=== PATIENT | male | born 1945 | race Two or more races ===

== ENCOUNTER → 2016-08-20 | Outpatient (CLI) | payer MEDICARE, OTHER ==
[~2016-08-20] MED LIST: ALLO300T2 PO; BUME1TAB18 PO; CARVED PO; KETO75CA PO; LOSARTAN PO; METOLAZONE PO; OMEPRAZOL PO; POTASSIUM PO; WARF2TAB PO
--- NOTE | 2016-08-20 16:14 | RADRPT ---
PROCEDURE: XR bilateral knees. CLINICAL INDICATION: Knee pain TECHNIQUE: AP weightbearing, lateral weightbearing and sunrise views of each knee are available fo r review. COMPARISON: None available FINDINGS: Right knee: There is severe osteoarthrosis involving the right medial tibial femoral compartment and patellofemo ral compartment and moderate osteoarthrosis of the lateral tibial femoral compartment .This is assoc iated with joint space narrowing, subchondral sclerosis, varus deformity and osteophytosis. Left knee: There is severe osteoarthrosis involving the left medial tibial femoral compartment and patellofemor al compartment and moderate osteoarthrosis of the lateral tibial femoral compartment. This is associ ated with joint space narrowing, subchondral sclerosis, lateral displacement of the tibia, varus def ormity and osteophytosis. There is otherwise normal mineralization, architecture and alignment. No fractures are identified. No osseous lesions are identified. The soft tissues are unremarkable. IMPRESSION: Severe osteoarthrosis involving the right medial tibial femoral compartment and patellofemoral marianela rtment and moderate osteoarthrosis of the lateral tibial femoral compartment Severe osteoarthrosis involving the left medial tibial femoral compartment and patellofemoral compar tment and moderate osteoarthrosis of the lateral tibial femoral compartment. RPTAT: HGDB .Vasyl Enriquez MD, MD Date Time Electronically viewed and signed by .Vasyl Enriquez MD, on 08/20/2016 16:14 .B/
--- NOTE | 2016-08-21 07:27 | HKNOTE ---
DATE OF SERVICE: 08/20/2016 REFERRING PHYSICIAN: Kevin Romero MD, [address], [address], [place] [address]. MAIN COMPLAINT: Pain in both knees. HISTORY OF MAIN COMPLAINT: The patient is a 71-year-old male who complains of pain in both knees wh ich has been present for many years. He saw an orthopedic surgeon in 2006, who scheduled him for a knee replacement. Unfortunately, the anesthesiologist was unable to intubate him, had to cancel the surgery, and he has been afraid to go back and have another attempt at going through with the surge ry. Meanwhile, his condition has deteriorated a great deal. PRESENT COMPLAINTS: Pain is present in both knees pretty much with every step that he takes. The p atient has been afraid to visit another orthopedic surgeon who might recommend knee replacement surg facundo because of his previous bad experience. He has had numerous conservative treatments. He has had at least 10 cortisone injections into each knee and 2 "gel" injections into each knee. He feels that he no longer gets any benefit from these injections. The pain has been in both knees, worse on the right side. He takes 4 Percocet per day for the pain. His pain is aggravated by walking and weightbearing. He does have pain at rest. Pain also wakes him up at night. He takes Percocet 10/325. He has also tried zolpidem as well as [place] 5/325. The patient was walking on 2 canes (he has requested a prescription for a walker from me today). On a level surface, he cannot walk more than a few steps using his double canes. He has to use the canes at all times. He limps all the time. He does not have a shoe lift. He can not clip his toenails or tie his shoelaces. PAST ORTHOPEDIC HISTORY: PREVIOUS ORTHOPEDIC OPERATIONS: None. PRIOR CORTISONE INTAKE: As above. ALCOHOL INTAKE: None. OTHER JOINT PROBLEMS: None listed. BLOOD TESTS FOR ARTHRITIS: None. PRIOR INJURIES TO HIPS OR KNEES: Yes. PAST MEDICAL HISTORY: 1. Diabetes, currently on metformin 500 mg b.i.d. 2. Hepatitis B. 3. Gout. 4. 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 5. Sleep apnea. Has been using CPAP machine for 4 years. 6. GERD. On omeprazole. 7. Morbid obesity (height 5 feet 2 inches, weight 225 pounds). 8. Benign prostatic hypertrophy. The patient has frequency. His urine dribbles. 9. Gout (currently on allopurinol 300 mg a day). 10. Glaucoma. PAST SURGICAL HISTORY: 1. Sinus surgery, 2003. 2. Cataract surgery, 2005. 3. Mitral valve replacement, 2010. 4. Pacemaker installation, 2010. DRUG ALLERGIES: LASIX. MEDICATIONS: 1. Lactulose. 2. Bumetanide. 3. Warfarin. 4. Omeprazole. 5. Tamsulosin. 6. Klor-Con. 7. Allopurinol 300 mg daily. 8. Metformin hydrochloride 500 mg twice a day. 9. Oxycodone 10/325 four per day. 10. Zolpidem 5 mg once a day. 11. Aller-Nikky for allergies. 12. Lumigan. 13. Pazeo. 14. Magnesium 400 mg daily. 15. Iron 65 mg daily. FAMILY HISTORY: Father at 63 of heart problems. Mother at 75 of cancer. SYSTEMS REVIEW: Difficulty with urination. Numbness "in both legs under the knees." Currently on Coumadin. Ankles swell. HABITS: The patient smoked from the age of 17 to 39 years. Alcohol intake moderate. PROFESSIONAL NURSING ASSISTANT: Veronika Varma MD, [address] [address] [place] [address]. Phone number [phone]. HEEL BUILDER: Kevin Romero MD, [address], [address], [place] [address]. PHYSICAL EXAMINATION: GENERAL: The patient is a markedly overweight 71-year-old male. He comes in with his . Lori vu one of the 2 speak Indonesian. Fortunately, our x-ray oven technician is and could do a perfect translation throughout the visit. VITAL SIGNS: Height 5 feet 4 inches. Weight 230 pounds. Blood pressure 125/70, temperature 97.6. GAIT: The patient has 2 canes. We gave him a walker to try, and he gets around much better on it. He can barely get onto the examination couch because he is so markedly incapacitated from his arthr itic knees. HIPS: Both hips have a full range of motion without pain. RIGHT KNEE: Varus deformity. Extension lacks 10 degrees. Flexion is to 105 degrees. Severe pain on attempting to exceed this range of motion. There is 6+ crepitus in the knee ____ the patella. LEFT KNEE: Varus deformity. Extension lacks 20 degrees. Flexion is to 105 degrees. There is 6+ c repitus in the knee ____ the patella. IMAGING: Plain x-rays of the right knee obtained today at the [facility] show ex ceedingly severe degenerative osteoarthritis most severely affecting the lateral compartment with va holden deformity. [id number] contact laterally with subchondral sclerosis, osteophyte formation and intraosseous cyst formation. Patellofemoral joint shows similar changes. Imaging of the left knee ____. DIAGNOSES: 1. Exceedingly severe degenerative osteoarthritis of both knees, more symptomatic on the right side . 2. Diabetes type 2. 3. Organic heart disease. 4. Mitral valve replacement with mechanical valve. 5. Currently on Coumadin, which he has been on since his mitral valve surgery. 6. Sleep apnea. 7. Gastroesophageal reflux disease. 8. Morbid obesity. 9. Benign prostatic hypertrophy. 10. Controlled gout. 11. Glaucoma. MANAGEMENT: Using a fluent Pakistani-speaking battery charger, patient and his were advised that his options are to live with his pain for the rest of his life or to consider knee replacement surgery. The operation of total knee replacement discussed with him and his in a fair amount of detail i ncluding some of the major possible complications. The patient was given my manual titled "Arthritis of the Knee Joint" which contains information conc erning the various alternatives of treatment. It includes various forms of conservative treatment, i ncluding the use of nonsteroidal anti-inflammatory medications and their dangers. Various surgical a lternatives are discussed. The technique of total knee replacement is discussed in detail, including possible complications. Included also is a section on the possible complications of blood transfusi on, a section on postoperative precautions, and an exercise program to follow at home after total kn ee replacement. The long-term care of a total knee replacement implant is also covered in detail. Th e patient was instructed to read this manual in its entirety since it is, in and of itself, a form o f informed consent. After reading this manual, the patient will make a list of further questions parminder t may not have been covered adequately. The patient was further advised that this manual, although e xhaustive in nature, is only intended to supplement and complement a one-on-one discussion with me. The patient indicates that he has someone who can translate for him on the book. He understands parminder t the book is slightly outdated. The patient will need to see Dr. Kevin Romero and Dr. Varma for clearance before he can consider proceeding with surgery. Note that he was shown videos of patients who have had knee replacement surgery, but most emphatical ly he was advised that he could not expect to make recovery at the same rate as the patients I showe d him since he is markedly overweight and has had severe arthritis in both knees for at least 10 yea rs (neglected arthritis). Certainly when he has his first knee replacement surgery on the right chelita e, he is going to have to still deal with the left side until we can eventually perform a left knee replacement. FINAL DIAGNOSES: 1. Exceedingly severe degenerative osteoarthritis of both knees, more symptomatic on the right side . 2. Diabetes type 2. 3. Organic heart disease. 4. Mitral valve replacement with mechanical valve. 5. Currently on Coumadin, which he has been on since his mitral valve surgery. 6. Sleep apnea. 7. Gastroesophageal reflux disease. 8. Morbid obesity. 9. Benign prostatic hypertrophy. 10. Controlled gout. 11. Glaucoma. Before he schedules his surgery, the patient will see Dr. Romero and Dr. Varma for their blessings before we schedule his surgery. Dictated By: ARIANA AC MD HH/NTS Conf#: [id number] DID#: [id number] CC: KEVIN ROMERO MD; VERONIKA VARMA MD;*[facility]*
== END | disposition home or self-care (01) ==
LOC: HKI 09:38
DX: M25.561 Pain in right knee (principal); M25.562 Pain in left knee; M17.0 Bilateral primary osteoarthritis of knee; E11.9 Type 2 diabetes mellitus without complications; E66.09 Other obesity due to excess calories; K21.9 Gastro-esophageal reflux disease without esophagitis; N40.0 Benign prostatic hyperplasia without lower urinary tract symptoms; Z95.2 Presence of prosthetic heart valve
CPT/HCPCS: 73562; G0463

== ENCOUNTER 2016-09-09 07:30 | Inpatient (IN) | payer MEDICARE, OTHER ==
[~2016-09-09] VITALS: Ht 162.6 cm; Wt 102.7 kg
[2016-10-22] VITALS (30 sets, daily range): BP systolic 109–148; BP diastolic 34–87; PULSE 62–82; RESP 12–30; Ht 162.6 cm; Wt 102.7 kg
[2016-10-22] MEDS ORDERED: DEXAMETHASONE 4 MG/ML 1 ML INJ IV ONE (05:30)
[2016-10-22] MEDS ORDERED: VANCOMYCIN 1 GM (PMX) 250 ML IVPB ONE (05:30)
[2016-10-22] MEDS ORDERED: ONDANSETRON 4 MG INJ IV ONE (05:30)
[2016-10-22] MEDS ORDERED: oxyCODONE (CR) 10 MG TAB [oxyCONTIN] PO ONE (05:30)
[2016-10-22] MEDS ORDERED: CELECOXIB 200 MG CAP PO ONE (05:30)
[2016-10-22] MEDS ORDERED: ACETAMINOPHEN 1000MG/100ML IV 100 ML IVPB ONE (05:30)
[2016-10-22] MEDS ORDERED: LACTATED RINGER'S 1,000 ML IV* SCH (05:30)
[2016-10-22] MEDS ORDERED: LANSOPRAZOLE 30 MG CAP PO ONE (05:30)
[2016-10-22] MEDS: KNEE PAIN COCKTAIL VANCO INJ SCH ×12 (05:30→09:10)
[2016-10-22] MEDS ORDERED: CARV3.12 PO (05:46)
[2016-10-22] MEDS ORDERED: METF500T3 PO (05:46)
[2016-10-22] MEDS ORDERED: TAMS0.4C2 PO (05:46)
[2016-10-22] MEDS ORDERED: OMEP20CA16 PO (05:46)
[2016-10-22] MEDS ORDERED: ZOLP5TAB7 PO (05:51)
[2016-10-22] MEDS ORDERED: BIMA2.5D BOTH EYES (05:51)
[2016-10-22] MEDS ORDERED: [UNRECOGNIZED DRUG - CODE] PO (05:51)
[2016-10-22] MEDS ORDERED: MAGN400T38 PO ×2 (05:51→07:44)
[2016-10-22] MEDS ORDERED: POTA10TA97 PO (05:51)
[2016-10-22] MEDS ORDERED: FERR325C PO ×2 (05:51→07:44)
[2016-10-22] MEDS ORDERED: TRANEXAMIC ACID 2,000 MG in SOD CHLORIDE 0.9% 100 ML IVPB ONE (06:00)
[2016-10-22] MEDS ORDERED: NEOSTIGMINE 3 MG/3 ML SYRINGE ONE (06:24)
[2016-10-22] MEDS ORDERED: PROPOFOL 20 ML ONE (06:24)
[2016-10-22] MEDS ORDERED: LIDOCAINE 2% (SDV) 5 ML INJ ONE (06:24)
[2016-10-22] MEDS ORDERED: FENTAnyl 50 MCG/ML VIAL ONE (06:24)
[2016-10-22] MEDS ORDERED: ROCURONIUM 50 MG INJ ONE (06:24)
[2016-10-22] MEDS ORDERED: GLYCOPYRROLATE 0.4 MG INJ ONE (06:24)
[2016-10-22] MEDS ORDERED: ONDANSETRON 4 MG INJ ONE (06:25)
[2016-10-22] MEDS ORDERED: MIDAZOLAM 1 MG/ML 2 ML INJ ONE ×2 (06:25→08:32)
[2016-10-22] MEDS ORDERED: DEXAMETHASONE 4 MG/ML 1 ML INJ ONE (06:25)
[2016-10-22] MEDS ORDERED: SUGAMMADEX SODIUM 200 MG/2 ML VIAL IV ONE (06:25)
[2016-10-22] MEDS ORDERED: LIDOCAINE 2%/EPI 30 ML INJ ONE (06:26)
[2016-10-22] MEDS ORDERED: OXYCODONE/ACETAMINOPHEN (5/325) TAB PO PRN ×2 (06:30)
[2016-10-22] MEDS ORDERED: morphine (1 MG/ML) 10ML SYRINGE IV PRN ×3 (06:30)
[2016-10-22] MEDS ORDERED: HYDROmorphONE (0.2 MG/ML) 10ML SYG IV PRN ×2 (06:30)
[2016-10-22] MEDS ORDERED: SOD CHLORIDE 0.9% 50 ML, TRANEXAMIC ACID 2,000 MG IRR SCH ×2 (06:30)
[2016-10-22] MEDS ORDERED: MIDAZOLAM 1 MG/ML 2 ML INJ IV PRN (06:30)
[2016-10-22] MEDS ORDERED: ONDANSETRON 4 MG INJ IV PRN (06:30)
[2016-10-22] MEDS ORDERED: LABETALOL HCL 20MG INJ IV PRN (06:30)
[2016-10-22] MEDS ORDERED: hydrALAzine 20 MG INJ IV PRN (06:30)
[2016-10-22] MEDS ORDERED: FENTAnyl 50 MCG/ML VIAL IV PRN ×2 (06:30)
[2016-10-22] MEDS ORDERED: DIPHENHYDRAMINE 50 MG INJ IV PRN (06:30)
[2016-10-22] MEDS ORDERED: MEPERIDINE 25 MG INJ IV PRN (06:30)
[2016-10-22] MEDS ORDERED: ATROPINE 1 MG/10 ML SYRINGE IV PRN (06:30)
[2016-10-22] MEDS ORDERED: EPHEDrine SULFATE 50 MG/5 ML SYG IV PRN (06:30)
[2016-10-22 06:35] LABS: INR 1.05; PROTIME 13.7 Sec (12.2-14.2); PT RATIO 1.1
[2016-10-22 06:36] LABS: PARTIAL THROMBOPLASTIN TIME 31.9 Sec (25.0-35.0)
--- NOTE | 2016-10-22 06:46 | HPN ---
Date/Time of Note Date/Time of Note DATE: 10/22/16 TIME: 06:46 Interval H&P Admission Note Pt. seen H&P reviewed: No system changes GUERO SMITH PA-C Oct 22, 2016 06:46
[2016-10-22] MEDS ORDERED: LIDOCAINE 4% SOLUTION 50 ML BTL TOP ONE (07:00)
[2016-10-22] MEDS ORDERED: VANCOMYCIN 1 GM INJ ONE (07:04)
[2016-10-22] MEDS ORDERED: METHYLENE BLUE 1% 10 ML INJ ONE (07:04)
[2016-10-22] MEDS ORDERED: TOBRAMYCIN 1.2 GM POWDER ONE (07:04)
[2016-10-22] MEDS ORDERED: ROPIVACAINE 0.2% 100 ML ONE (07:04)
[2016-10-22] MEDS ORDERED: POLYMYXIN B 500000 UNIT INJ ONE (07:04)
[2016-10-22] MEDS ORDERED: LIDOCAINE 4% (MPF) 5 ML INJ ONE (07:17)
[2016-10-22] MEDS ORDERED: BUPIVACAINE 0.25%/EPI (SDV) 30 ML INJ INJ SCH (07:30)
[2016-10-22] MEDS ORDERED: OLOP2.5D5 OP (07:44)
[2016-10-22] MEDS ORDERED: ROPIVACAINE 0.2% 100ML BAG INJ ONE (09:10)
[2016-10-22] MEDS ORDERED: BACITRACIN 50000 UNITS INJ IRR ONE (09:10)
[2016-10-22] MEDS ORDERED: DEXTROSE 5%-LR 1,000 ML IV SCH (13:28)
[2016-10-22] MEDS ORDERED: WARFARIN 5 MG TAB PO ONE (13:30)
[2016-10-22] MEDS ORDERED: SENNA/DOCUSATE NA (8.6MG/50MG) TAB PO PRN (13:30)
[2016-10-22] MEDS ORDERED: DOCUSATE SODIUM 100 MG CAP PO ONE (13:30)
[2016-10-22] MEDS ORDERED: NALOXONE (0.4 MG/ML) INJ IV PRN (13:30)
[2016-10-22] MEDS ORDERED: NA PHOSPHATE/BIPHOS 133 ML ENEMA PR PRN (13:30)
[2016-10-22] MEDS ORDERED: MEPERIDINE 10 MG/ML 30 ML PCA IV PRN (13:30)
[2016-10-22] MEDS ORDERED: HYDROmorphONE 0.2 MG/ML PCA IV PRN (13:30)
[2016-10-22] MEDS ORDERED: BETHANECHOL 25 MG TAB PO PRN (13:30)
[2016-10-22] MEDS ORDERED: oxyCODONE 5 MG TAB PO PRN (13:30)
[2016-10-22] MEDS ORDERED: DIPHENHYDRAMINE 50 MG INJ IM PRN (13:30)
[2016-10-22] MEDS ORDERED: COUMADIN NOTE XX SCH (13:30)
[2016-10-22] MEDS ORDERED: TRANEXAMIC ACID 1,030 MG in SOD CHLORIDE 0.9% 100 ML IVPB ONE ×5 (13:30→16:15)
[2016-10-22] MEDS ORDERED: BISACODYL 10 MG SUPP PR PRN (13:30)
[2016-10-22] MEDS ORDERED: MAGNESIUM HYDROXIDE 30ML CUP PO PRN (13:30)
[2016-10-22] MEDS ORDERED: ZOLPIDEM 5 MG TAB PO PRN (13:30)
--- NOTE | 2016-10-22 13:31 | OPR ---
Date/Time of Note Date/Time of Note DATE: 10/22/16 TIME: 13:25 Operative Report Preoperative Diagnosis Severe arthritis of the left knee Postoperative Diagnosis Same Operation/Procedure Performed Left total knee replaced with lateral patella release Surgeon: ARIANA AC MD Co-Surgeon: GUERO SMITH PA-C Anesthesia Type: epidural Estimated Blood Loss: 200 - 250 ml's Transfusion Required: no Specimens Bone and culture from the skin Grafts/Implants: none Complications: no ARIANA AC MD Oct 22, 2016 13:31
--- NOTE | 2016-10-22 13:37 | PDOCDIS ---
Discharge Instructions DIAGNOSIS Discharge Diagnosis Status post left total knee arthroplasty CONDITION Patient Condition: Stable HOME CARE INSTRUCTIONS: Diet Instructions: Regular ACTIVITY: Activity Restrictions: Slowly Increase Activity Rest between Activity Avoid heavy lifting No Sexual Activity Do not Drive Do not operate Machinery Do not operate Power Tool Avoid Heavy Housework Keep Limb Elevated (With ice modalities as well.) Weight Bearing (As tolerated with front wheeled walker. Also use knee immobilizer for 6 weeks after surgery while weightbearing. You do not need to use knee immobilizer while performing physical therapy or at rest.) Bathing Restrictions: Shower (Using Tegaderm with pad. Apply prior to shower. Make sure area is nice and dry and then remove Tegaderm with pad. Repeat the steps each days until junior are removed around 10 days postoperatively.) FOLLOW UP/APPOINTMENTS Follow-up Plan 11/12/2016 at 2:15 PM GUERO SMITH PA-C Oct 22, 2016 13:37
--- NOTE | 2016-10-22 13:39 | OPR ---
Date/Time of Note Date/Time of Note DATE: 10/22/16 TIME: 13:33 Operative Report Surgeon: ELDON MCKINNON MD Senior Payroll Manager: GUERO SMITH PA-C Anesthesia Type: epidural Estimated Blood Loss: 200 - 250 ml's Transfusion Required: no Complications: no Procedure Description Date of Operation: October 20, 2016 Surgeon: Eldon Mckinnon MD Senior Payroll Manager: Guero Smith PA-C Anesthesiologist: Dr. Pérez Preoperative Diagnosis: Exceedingly severe degenerative osteoarthritis of the left knee. Postoperative Diagnosis: Exceedingly severe degenerative osteoarthritis of the left knee. Operation Performed: Total knee replacement (arthroplasty of the knee, condylar plateau medial and lateral compartments with patella resurfacing, CPT 59202). Justification for Surgery: The knee was found to have an end-stage osteoarthritis. The patient is a very active 71-year-old diffuse lifestyles markedly affected by the arthritic knee. An extensive course of conservative care has been tried prior to embarking on the knee replacement operation. There can be no reasonable expectation that any further conservative treatment will make any improvement to this patient's pain level and lifestyle. The risks and complications of the surgery were discussed with the patient at the preoperative visit as well as the risks and possible complications of blood transfusion using hospital blood. The patient is agreeable to using hospital blood if needed. Description of Procedure: The patient was given intravenous antibiotics 1 hour prior to surgery. An epidural anesthetic was initiated in the ICU holding area. The patient was taken to the operating room and given a light general anesthetic. The leg, foot, and ankle were prepared and draped in the usual sterile fashion. The center of the ankle was marked at the midpoint between the 2 malleoli with a sterile marking pen. A tourniquet around the thigh was inflated to 225 mmHg after the leg had been exsanguinated using an Esmarch bandage. The tourniquet was inflated at the initiation of procedure for a short period and was then again reinflated at the time of cementing the components parts. The total tourniquet time was 51 minutes. A longitudinal incision was made over the anterior aspect of the knee. The incision extended from the tibial tubercle to a point just above the patella. The medial capsule was exposed by sharp and blunt dissection, and was incised inch medial to the patella. A marking stitch was set on each side of the incision at the midpoint of the capsule so as to enable accurate reapproximation at the end of the operation. A vastus split was made in the vastus medialis extending from the superior pole of the patella for approximately 5 cm between the line with the muscle fibers. The ends of the muscle split at the patella were marked with a marking stitch on each side for later accurate reapproximation. The patella was reflected laterally and osteophytes around the brim of the patella were removed. Osteophytes along the lateral femoral condyle were removed so as to facilitate lateral reflection of the patella. Posterior medial osteophytes were removed on the lateral side as well, Sastry free of the lateral collateral ligament. Medial femoral osteophytes and posteromedial femoral osteophytes were also removed at this time. This allowed for the knee to be brought into a more normal alignment. A segment of bone was cut from the articular surface of the patella using a caliper to determine the exact thickness to be removed. The remaining thickness of the patella was 17 mm. The knee was flexed, and the patella was displaced laterally without eversion. Osteophyte in the femoral notch were removed. The remnants of the medial and lateral menisci were excised and the cruciate ligaments were excised. The medial collateral ligament was elevated as an osteo -periosteal flap from the proximal tibia. The distal end of the medial collateral ligament remained attached to the tibia throughout the operation. The tibia was retracted forward with Hohmann retractor, inserted posterior to the midpoint of the proximal tibia. The tibial jig was set in place in such a way as to align longitudinally with the anterior tibial spine, with the junction of the middle and medial 2/3 of the patella tendon and with the posterior intercondylar eminence of the tibia. An AP and lateral x-ray was obtained with the ligament jig in place. This showed that the alignment was satisfactory after some slight adjustments were made. The posterior slope of the tibia was set at 6 degrees. The tibial cutting block was attached to the proximal tibia with 2 Steinmann pins. An external alignment ethan was placed and the cutting block to confirm the alignment of the cutting block. An Cliff Wing feeler gauge was now placed on the superior aspect of the cutting block to further confirm the posterior slope of the tibia in the depths of the cut to be made. An oscillating saw was used to remove an appropriate amount of bone from the proximal tibia with the healthy side being used to measure the cutting depth. The lateral femoral condyle of the distal femur was measured to determine the appropriate size for the femoral component. The anterior condyle of the femur was partially removed with a rongeur. A medium size cutting block was attached to the distal femur with 2 Steinmann pins through the pinholes in the block. The external alignment jig of this cutting block was lined up with the anterior surface of the femur and a central intercondylar hole for the intra -medullary ethan was drilled into the hole and the alignment block. The block was removed. A long Water pik nozzle was used to flush fat from the intramedullary canal. The appropriately sized cutting block was now attached to the femur by means of intramedullary ethan. The linking guide was inserted into the slot in the base of the femoral cutting block with the knee set at 90 degrees of flexion and with the linking guide set flush with the proximal tibial cut in order to set the appropriate rotational alignment on the femoral cutting block. Ligament balance was checked at this point and was found to be very satisfactory. Once the rotational alignment had been determined, and the ligaments found to be balanced, the femoral cutting block was secured to the distal femur with 2 Steinmann pins. The anterior and posterior cuts of the distal femur were made off the femoral cutting block. The cutting block was removed and a spacer block was used to measure the flexion gap which was found to be 15 mm. The same block size without the femoral element was used with the leg extension to determine the amount of distal femur to be removed in the transverse plane. A 5 degree distal cutting block was now set on the femoral entry intramedullary ethan, and the ethan was inserted into the intramedullary canal. The appropriate amount of bone to be removed was determined. The femoral cutting block was pinned to the anterior surface of the femur with 2 Steinmann pins. The appropriate amount of bone was resected off the distal femur to give an extension gap equal to the thickness of the flexion gap. The cut needed to be repeated after initial cut in order to produce an extension gap the same size of the flexion gap. By using the appropriate cutting blocks, the rest of the femoral cuts were made. The femoral trial component was installed and was found to fit perfectly. The femoral trial component was removed. The proximal tibia was sized, and the appropriate tibial tray selected. The central fixation hole in the tibia was made using the tibial tray template and the appropriate instruments. The femoral tibial trials and the trial tibial insert were installed, and the patella was prepared to accept the 32 sized dome component. The trial components were all removed. The tourniquet was inflated. Soft tissues around the knee, especially the posterior capsule, were injected with mixture of Naropin, Toradol, morphine, and clonidine. The cut surfaces of the bones were cleaned with pulsatile Water Jet lavage and thoroughly dried. Sclerotic bone surfaces were drilled with a 1/8-inch drill. The tibial trial component was installed with the methyl methacrylate cement followed by the femoral component and finally the patellar component. Cement was used on all 3 components. The cement was finger packed into the cut surfaces of the bone and pressurized with a rubber dam in order to get good interdigitation of the cement into the bone. A lateral x-ray of the knee was obtained while the cement was hardening with the anticipated appropriate spacer trial in place. This showed that the knee was in full extension. Once the cement was hard, all extraneous cement was removed. The cut edges of the medial capsule were held together at the midpoint with a towel clip, and the knee was put through a full range of motion. The patella was found to track satisfactorily. A lateral release was was required. At this point, the patella was round to track very well in the patellar groove of the femoral component. The knee was frequently irrigated with normal saline containing antibiotics with pulsatile lavage throughout the entire operation as a prophylactic measure against infection. Once the cement was hard, the tourniquet was released. Bleeding points were cauterized. The total tourniquet time was 51. The patient 's vital signs remained stable throughout the operation. The permanent rotating bearing was installed. Superficial and deep Hemovac drains were set in place. The wound was closed using interrupted Vicryl on the capsule with FiberWire used strategic points such as the attachment of the distal ends of the vastus medialis split, and the tibial tendon was also attached to the osteo--periosteal flap with FiberWire. The rest of the medial capsule was closed with interrupted Vicryl. A subcuticular stitch was inserted and junior were used on the skin. The usual sterile dressings were applied. A Michele-Huerta compression dressing was applied after sterile cooling pad had been set in place against the deep tissue by sterile cast padding. The patient's condition at the end of the procedure was satisfactory. Vital signs remained stable throughout the operation. The patient returned to the recovery room in stable condition. X-rays were obtained in the recovery room. Calf pumps were applied to both legs in the operating room. There were no problems or complications as far as we know except that tibial bearing once open found to be a revision bearing], a mistake made by the distributor for the bearing. We had to wait approximately 85 minutes before a replacement could be brought from another hospital. The sponge and instrument count were correct. Component Information: Knee Implant Type: LCS. Femoral Component Size: LARGE Tibial Component Size: 5 Patellar Component Size: 32 Tibial Insert: 15 mm Implant Clinical Research Monitor: [employer] [place], [place]. Total Tourniquet Time: 51 Total Blood Loss: 150 Dictacted By: MD YASHIRA Martin HERBERT D MD Oct 22, 2016 13:39
[2016-10-22] MEDS: HYDROmorphONE (0.2 MG/ML) 10ML SYG IV PRN ×2 (13:56→14:52)
[2016-10-22] MEDS: ONDANSETRON 4 MG INJ IV SCH ×2 (13:56→20:34)
[2016-10-22] MEDS: CEFAZOLIN 1 GM/50 ML (PMX) 50 ML IVPB SCH ×2 (14:09→22:54)
[2016-10-22] MEDS: ACETAMINOPHEN 1000MG/100ML IV 100 ML IVPB SCH ×2 (14:10→23:30)
--- NOTE | 2016-10-22 15:38 | RADRPT ---
PROCEDURE: XR Knee. CLINICAL INDICATION: Status post knee replacement TECHNIQUE: AP and lateral view of the left knee were obtained. The images reviewed on a PACS work station. COMPARISON: August 20, 2016 FINDINGS: Complete left knee replacement is identified. Prosthetic components are in appropriate position and alignment. No fractures or destructive lesions are observed. Surgical drain is seen in the knee. Soft tissue air is procedural in nature. IMPRESSION: Status post left knee replacement. Prosthetic components are in appropriate position and alignment. RPTAT: AA .Refugio Barraza MD, MD Date Time Electronically viewed and signed by .Refugio Barraza MD, on 10/22/2016 15:37 .P/
--- NOTE | 2016-10-22 15:55 | RADRPT ---
PROCEDURE: XR Left Knee. CLINICAL INDICATION: Left knee pain. Intraoperative. TECHNIQUE: Two views. Frontal and lateral. COMPARISON: 08/20/2016. FINDINGS: There are components of the left knee total arthroplasty. Gas is present in the soft tissues related to the surgery. IMPRESSION: 1. Satisfactory intraoperative appearance of the left knee. RPTAT: QQ .Rigoberto Rebollar MD, MD Date Time Electronically viewed and signed by .Rigoberto Rebollar MD, on 10/22/2016 15:54 .R/
[2016-10-22] MEDS ORDERED: GLUCOSE GEL 15 GRAM TUBE BUCCAL PRN (22:30)
[2016-10-22] MEDS ORDERED: GLUCOSE GEL 15 GRAM TUBE PO PRN ×2 (22:30)
[2016-10-22] MEDS ORDERED: DEXTROSE 50% 50 ML SYRINGE IV PRN ×2 (22:30)
[2016-10-22] MEDS ORDERED: GLUCAGON 1 MG INJ IM PRN (22:30)
[2016-10-22] MEDS: SOD CHLORIDE 0.9% 1,000 ML IV SCH (22:52)
[2016-10-22] MEDS: INSULIN ASPART [NOVOLOG] 3 ML PEN SC SCH (22:56)
[2016-10-23 00:05] VITALS: BP 140/83; RESP 20
[2016-10-23] MEDS ORDERED: ACCU-CHEK XX SCH (02:00)
[2016-10-23] MEDS: ACCU-CHEK XX SCH (02:00)
[2016-10-23] MEDS: ONDANSETRON 4 MG INJ IV SCH ×2 (02:18→07:58)
[2016-10-23 04:46] VITALS: BP 123/58; PULSE 64; RESP 18
[2016-10-23] MEDS ORDERED: BUPIVACAINE 0.25%/EPI (SDV) 30 ML INJ INJ PRN (06:00)
[2016-10-23] MEDS ORDERED: KETOROLAC 15 MG INJ INJ PRN (06:00)
[2016-10-23 06:01] LABS: BASOPHILS % 0.1 % (0.0-2.0); HEMATOCRIT 35.2 % (42.0-52.0); HEMOGLOBIN 11.5 g/dl (14.0-18.0); LYMPHOCYTES # 1.6 10^3/ul (0.8-2.9); LYMPHOCYTES % 10.9 % (15.0-51.0); MEAN CORPUSCULAR HGB CONC 32.7 g/dl (32.0-37.0); MEAN CORPUSCULAR VOLUME 85.6 fl (82.0-101.0); MEAN PLATELET VOLUME 9.2 fl (7.4-10.4); MONOCYTE # 1.2 10^3/ul (0.3-0.9); MONOCYTES % 7.9 % (0.0-11.0); NEUTROPHILS % 80.6 % (39.0-77.0); PLATELET COUNT 288 10^3/UL (140-415); RED BLOOD COUNT 4.11 10^6/ul (4.70-6.10); RED CELL DISTRIBUTION WIDTH 16.2 % (11.5-14.5); WHITE BLOOD COUNT 14.9 10^3/ul (4.8-10.8)
[2016-10-23 06:18] LABS: INR 1.22; PROTIME 15.5 Sec (12.2-14.2); PT RATIO 1.2
[2016-10-23] MEDS: CEFAZOLIN 1 GM/50 ML (PMX) 50 ML IVPB SCH (06:19)
--- NOTE | 2016-10-23 06:38 | HKNOTE ---
DATE OF SERVICE: 10/21/2016 MAIN COMPLAINT: Patient comes in for preop evaluation. HISTORY OF MAIN COMPLAINT: He is scheduled for a left knee replacement on 10/22/2016. He has been cleared for surgery by Dr. Kevin Chin. He did not give any blood for transfusion. He understands the risks associated with using hospital blood. He is agreeable to using hospital blood if needed. Neither he nor his can speak a word of Croatian. Cheryl Uribequivel translated throughout. He has also had cardiac clearance by Dr. Soria. The patient has had a previous mitral valve replacement, and he was on Coumadin. He has been off Coumadin for a few days. I spoke with Dr. Soria on the phone and he has recommended that we get back onto the Coumadin as soon as possible after the surgery with a bridge of Lovenox. Numerous questions were asked and answered through the piling cutter. Dictated By: Eldon Mckinnon MD /artur/prabhu /Document#: [id number]
--- NOTE | 2016-10-23 06:42 | CONS ---
Date/Time of Note Date/Time of Note DATE: 10/23/16 TIME: 06:19 Assessment/Plan Assessment/Plan Chief Complaint/Hosp Course This is a 71-year-old male admitted to the [facility] floor for: #1 left total knee arthroplasty: Patient is POD #0 for a Left total knee replacement with lateral patella release. Currently is doing well and is not in any acute distress. Left knee brace and dressing clean dry and intact. Continue pain management as per orders orders. Continue anticoagulation as per orthopedics. Clear liquid diet and advance to diabetic control diet. #2 diabetes mellitus: Check hemoglobin A1c. Will hold metformin for right now. Insulin sliding scale. #3 glaucoma: Resume eyedrops #4 mechanical heart valve: Patient is unsure which valve was replaced, based on examination is likely could be the mitral valve. At the current time will hold Coumadin as patient does have knee drainage of serosanguineous fluid. Will discuss with Ortho regarding resumption of Coumadin. Will check INR daily. Goal to keep INR between 2.5-3.5 #5 hypertension: We will restart medication as clinically indicated. #6 DVT and GI prophylaxis: SCD, acid franklyn Further treatment strategy will be implemented as per the clinical course. For this consultation, we will follow with you Problems: Consultation Date/Type/Reason Admit Date/Time Oct 22, 2016 at 05:53 Reason for Consultation Medical management Hx of Present Illness Chief complaint: Left knee pain This is a 71-year-old male status post left total knee replacement POD #0. Patient had been dealing with severe osteoarthritis of the left knee starting in 1999. Patient states that he had difficulty ambulating throughout the years. 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 Patient will has been on disability since. At the current time patient is doing well postop surgery. He denies any pain at this time. Allergies: Lasix Medications: See MAR Const: As per HPI Eyes : No pain discharge or redness or change in visual acuity ENT: No pain, sore throat, congestion, congestion, dysphagia or discharge Respiratory: No shortness of breath, cough, sputum, wheezing, or pleuritic pain Cardiovascular: No chest pain, palpitation, PND, or edema GI : no change in appetite, abdominal pain, nausea, vomiting, diarrhea, constipation, or change in the color his stool Genitourinary: No dysuria, hematuria, flank pain , discharge or CVA tenderness Musculoskeletal: As per HPI Skin: No rash, bruising or hives Neuro: No headache, dizziness, syncope, seizure, focal weakness Endocrine: No polyuria, polydipsia, temperature intolerance Psych: No hallucination, depression, anxiety or suicidal ideation Past Medical History Diabetes mellitus, CAD, glaucoma, mechanical heart valve Past Surgical History Mechanical heart valve insertion, pacemaker insertion, Left total knee replaced with lateral patella release Family History Significant Family History: diabetes Social History Alcohol Use: none Smoking Status: Never smoker Drug Use: none Exam/Review of Systems Vital Signs Vitals Vital Signs Date Time Temp Pulse Resp B/P Pulse Ox O2 Delivery O2 Flow Rate FiO2 10/23/16 05:00 18 10/23/16 04:46 97.6 64 123/58 98 Nasal Cannula 2.0 10/22/16 07:27 21 Intake and Output 10/22/16 10/22/16 10/23/16 15:00 23:00 07:00 Intake Total 2800 ml 100 ml 1110 ml Output Total 250 ml 1300 ml 1520 ml Balance 2550 ml -1200 ml -410 ml Exam General: This is a pleasant obese male laying in bed in no acute distress HEENT: Atraumatic, normocephalic. The pupils are equal, round and reactive. Extraocular motor are intact Neck: Supple with full range of motion. No rigidity or meningismus Chest: Nontender Lungs: Clear to auscultation bilaterally no crackles rales or wheezing Heart: Normal S1-S2, regular rhythm, click murmur at the fifth left intercostal space Abdomen: Soft , nontender, nondistended , bowel sounds are present. No guarding no rebound tenderness , No masses or organomegaly. No costovertebral temporal angle mass Extremities: Left knee in brace dressing clean dry and intact connected to drain which is putting out serosanguineous fluid. Neurologic: Normal mental status, speech normal, cranial nerves II through XII are intact, motor and sensory are intact, no focal weakness Additional Comments PROCEDURE: XR Knee. CLINICAL INDICATION: Status post knee replacement TECHNIQUE: AP and lateral view of the left knee were obtained. The images reviewed on a PACS workstation. COMPARISON: August 20, 2016 FINDINGS: Complete left knee replacement is identified. Prosthetic components are in appropriate position and alignment. No fractures or destructive lesions are observed. Surgical drain is seen in the knee. Soft tissue air is procedural in nature. IMPRESSION: Status post left knee replacement. Prosthetic components are in appropriate position and alignment. RPTAT: AA .Refugio Barraza MD, MD Date Time Electronically viewed and signed by .Refugio Barraza MD, MD on 10/22/2016 15:37 .P/ CC: GUERO SMITH PA-C Results Result Diagram: 10/23/16 0440 Results 24 hrs Laboratory Tests Test 10/22/16 06:50 10/22/16 15:16 10/22/16 23:11 10/23/16 04:39 Bedside Glucose 114 163 130 Prothrombin Time 15.5 H Prothrombin Time Ratio 1.2 INR International Normalized Ratio 1.22 Test 10/23/16 04:40 White Blood Count 14.9 H Red Blood Count 4.11 L Hemoglobin 11.5 L Hematocrit 35.2 L Mean Corpuscular Volume 85.6 Mean Corpuscular Hemoglobin 28.0 L Mean Corpuscular Hemoglobin Concent 32.7 Red Cell Distribution Width 16.2 H Platelet Count 288 Mean Platelet Volume 9.2 Neutrophils % 80.6 H Lymphocytes % 10.9 L Monocytes % 7.9 Eosinophils % 0.0 Basophils % 0.1 Nucleated Red Blood Cells % 0.0 Neutrophils # 12.0 H Lymphocytes # 1.6 Monocytes # 1.2 H Eosinophils # 0.0 Basophils # 0.0 Nucleated Red Blood Cells # 0.0 Medications Medications Current Medications Hydromorphone HCl (Dilaudid IN FLIGHT REFUELING MANAGER) Q4PCA PRN IV SEVERE PAIN 8-10 Last administered on 10/22/16t 20:35; Admin Dose 6 MG; Start 10/22/16 at 13:30; Stop 10/23/16 at 13:29 Meperidine HCl (Demerol IN FLIGHT REFUELING MANAGER) Q4PCA PRN IV SEVERE PAIN 8-10; Start 10/22/16 at 13:30; Stop 10/23/16 at 13:29 Oxycodone HCl (Roxicodone) 20 mg Q3H PRN PO PAIN LEVEL 8-10; Start 10/22/16 at 13:30 Oxycodone HCl (Roxicodone) 10 mg Q3H PRN PO PAIN LEVEL 4-7; Start 10/22/16 at 13:30 Oxycodone HCl 5 mg 5 mg Q3H PRN PO PAIN LEVEL 1-3; Start 10/22/16 at 13:30 Acetaminophen (Ofirmev 1000mg/ 100ml Iv) 100 ml @ 400 mls/hr Q8H IVPB Last administered on 10/22/16 23:30; Admin Dose 400 MLS/HR; Start 10/22/16 at 13:30 ; Stop 10/24/16 at 05:44 Zolpidem Tartrate (Ambien) 5 mg HS PRN PO INSOMNIA; Start 10/22/16 at 13:30 Ondansetron HCl (Zofran Inj) 4 mg Q6H IV Last administered on 10/23/16 02:18; Admin Dose 4 MG; Start 10/22/16 at 13:30; Stop 10/23/16 at 07:31 Enoxaparin Sodium (Lovenox) 30 mg ONCE ONCE SC ; Start 10/23/16 at 08:00; Stop 10/23/16 at 08:01 Miscellaneous Information (Note) NOTE XX ; Start 10/22/16 at 13:30 Celecoxib (Celebrex) 200 mg BID PO ; Start 10/23/16 at 09:00 Dexamethasone (Decadron) 4 mg DAILY@07 IV ; Start 10/23/16 at 07:00; Stop at 06:59 Pantoprazole (Protonix Tab) 40 mg DAILY@06 PO ; Start 10/24/16 at 06:00 Docusate Sodium/ Ferrous Fumarate (Amy-Sequels) 1 tab BID PO ; Start 10/23/16 at 09:00 Docusate Sodium (Colace) 200 mg BID PO ; Start 10/23/16 at 09:00; Stop 10/26/16 at 08:59 Simethicone (Mylicon) 80 mg TID PRN PO DISTENSION/GAS/BLOATING; Start 10/22/16 at 13:30 Senna/Docusate Sodium (Senokot-S) 2 tab BID PRN PO CONSTIPATION; Start at 13:30 Magnesium Hydroxide (Milk Of Mag) 30 ml HS PRN PO CONSTIPATION; Start 10/22/16 at 13:30 Bisacodyl (Dulcolax Supp) 10 mg DAILY PRN NH CONSTIPATION; Start 10/22/16 at 13 :30 Sodium Biphosphate/ Sodium Phosphate (Fleet Enema) 133 ml DAILY PRN NH CONSTIPATION; Start 10/22/16 at 13:30 Diphenhydramine HCl (Benadryl) 25 mg Q4H PRN IM ITCHING OR RASH; Start at 13:30 Ketorolac Tromethamine (Toradol) 15 mg DAILY@06 PRN INJ ADMINSTER BY SURGEON ONLY; Start 10/23/16 at 06:00; Stop 10/27/16 at 05:59 Bupivacaine HCl/ Epinephrine Bitart (Marcaine 0.25%/ Epi (Sdv) 30 ml) 20 ml DAILY@06 PRN INJ ADMINSTER BY SURGEON ONLY; Start 10/23/16 at 06:00; Stop 10/27 at 05:59 Naloxone HCl (Narcan) 0.2 mg Q2M PRN IV DECREASED REPIRATORY RATE; Start at 13:30 Diagnostic Test (Pha) 1 ea 1 ea 02 XX ; Start 10/23/16 at 02:00 Sodium Chloride (NS) 1,000 ml @ 80 mls/hr [id number] IV Last administered on 10/22t 22:52; Admin Dose 80 MLS/HR; Start 10/22/16 at 22:00 Miscellaneous Information 1 ea NOTE XX ; Start 10/22/16 at 22:30 Glucose (Glutose) 15 gm Q15M PRN PO DECREASED GLUCOSE; Start 10/22/16 at 22:30 Glucose (Glutose) 22.5 gm Q15M PRN PO DECREASED GLUCOSE; Start 10/22/16 at 22: 30 Dextrose (D50w Syringe) 25 ml Q15M PRN IV DECREASED GLUCOSE; Start 10/22/16 at 22:30 Dextrose (D50w Syringe) 50 ml Q15M PRN IV DECREASED GLUCOSE; Start 10/22/16 at 22:30 Glucagon (Glucagen) 1 mg Q15M PRN IM DECREASED GLUCOSE; Start 10/22/16 at 22:30 Glucose (Glutose) 15 gm Q15M PRN BUCCAL DECREASED GLUCOSE; Start 10/22/16 at 22 :30 AARON GUARDADO Oct 23, 2016 06:32
[2016-10-23] MEDS: ACETAMINOPHEN 1000MG/100ML IV 100 ML IVPB SCH ×3 (06:56→21:11)
[2016-10-23] MEDS: DEXAMETHASONE 4 MG/ML 1 ML INJ IV SCH (06:57)
[2016-10-23 06:59] LABS: ALBUMIN 3.4 g/dl (3.3-4.9); ALBUMIN/GLOBULIN RATIO 0.97; BILIRUBIN,INDIRECT 0.2 mg/dl (0-1.1); BILIRUBIN,TOTAL 0.2 mg/dl (0.2-1.3); CALCIUM 8.9 mg/dl (8.4-10.2); CREATININE 0.84 mg/dl (0.61-1.24); POTASSIUM 4.3 mmol/L (3.5-5.1); TOTAL PROTEIN 6.9 g/dl (6.1-8.1)
--- NOTE | 2016-10-23 07:44 | PN ---
Date/Time of Note Date/Time of Note DATE: 10/23/16 TIME: 07:40 Assessment/Plan VTE Prophylaxis VTE Prophylaxis Intervention: ambulation, SCD's, other (Coumadin 5mg (Beign monitored by Dr. Soria) Lines/Catheters IV Catheter Type (from Nrsg): Peripheral IV Assessment/Plan Assessment/Plan -Hemovac will remain in until tomorrow (POD2) -Pain Cocktail Given -Pain Meds as needed -Dress change performed today -OOB with PT -THE PATIENT MAY REMOVE KNEE IMMOBILIZER WHILE AT REST AND WITH PHYSICAL THERAPY. WHEN HE IN AMBULATING ON HIS OWN HE MUST KEEP KNEE IMMOBILIZER ON. -Coumadin/SCDs for DVT Prophylaxis. Coumadin will be monitored by Dr. Soria and Hospitalist -Continue monitoring with Internal Medicine -Patient Stable Subjective 24 Hr Interval Summary 71 y/o M POD#1 Left TKA. Doing well. Pain at 5/10 overnight. No c/o chest pain/ tightness, no calf pain. Has not been weightbearing yet. In knee immobilizer. Pain Control: mild Exam/Review of Systems Vital Signs Vitals Vital Signs Date Time Temp Pulse Resp B/P Pulse Ox O2 Delivery O2 Flow Rate FiO2 10/23/16 05:00 18 10/23/16 04:46 97.6 64 123/58 98 Nasal Cannula 2.0 10/22/16 07:27 21 Intake and Output 10/22/16 10/22/16 10/23/16 15:00 23:00 07:00 Intake Total 2800 ml 100 ml 1160 ml Output Total 250 ml 1300 ml 1520 ml Balance 2550 ml -1200 ml -360 ml Exam Free Text/Dictation -Hemovac: Intact. 180cc output -Pain Cocktail Drains: Intact -Incision: Clean, Dry and Intact without any redness or drainage -5/5 Tibialis Anterior, EHL Gastrocnemius/Soleus and Peroneals -Normal Sensation -Palpable DP/PT, Capillary Refill <2 secs -No Distal Edema -Negative Malinda Sign/No calf pain -Toes Freely Movable Constitutional: alert, oriented, well developed Results Result Diagram: 10/23/16 0440 10/23/16 0439 GUERO SMITH PA-C Oct 23, 2016 07:44
[2016-10-23] MEDS: INSULIN ASPART [NOVOLOG] 3 ML PEN SC SCH ×4 (07:50→21:00)
[2016-10-23] MEDS ORDERED: INSULIN ASPART [NOVOLOG] 3 ML PEN SC SCH (07:50)
--- NOTE | 2016-10-23 07:54 | PN ---
Date/Time of Note Date/Time of Note DATE: 10/23/16 TIME: 07:51 Assessment/Plan VTE Prophylaxis VTE Prophylaxis Intervention: SCD's Lines/Catheters IV Catheter Type (from Nrsg): Peripheral IV Assessment/Plan Assessment/Plan S/P Left Knee arthroplasty Prosthetic MVR HTN OA -continue current therapy -spoke with Dr Mckinnon and will try avoiding lovenox due to high bleeding risk post arthroplasty. However, if INR is not therapeutic post day 4, high riks of thrombosis as he has an MVR -s/p lovenox/warfarin and INR being folllowed by hospitalist -continue ortho care Subjective 24 Hr Interval Summary Free Text/Dictation The patient with no chest pain or SOB Exam/Review of Systems Vital Signs Vitals Vital Signs Date Time Temp Pulse Resp B/P Pulse Ox O2 Delivery O2 Flow Rate FiO2 10/23/16 05:00 18 10/23/16 04:46 97.6 64 123/58 98 Nasal Cannula 2.0 10/22/16 07:27 21 Intake and Output 10/22/16 10/22/16 10/23/16 15:00 23:00 07:00 Intake Total 2800 ml 100 ml 1160 ml Output Total 250 ml 1300 ml 1520 ml Balance 2550 ml -1200 ml -360 ml Results Result Diagram: 10/23/16 0440 10/23/16 0439 Results 24 hrs Laboratory Tests Test 10/22/16 15:16 10/22/16 23:11 10/23/16 04:39 10/23/16 04:40 Bedside Glucose 163 130 Prothrombin Time 15.5 H Prothrombin Time Ratio 1.2 INR International Normalized Ratio 1.22 Sodium Level 143 Potassium Level 4.3 Chloride Level 99 Carbon Dioxide Level 33 H Anion Gap 15 Blood Urea Nitrogen 12 Creatinine 0.84 Glucose Level 131 Hemoglobin A1c 6.0 H Calcium Level 8.9 Total Bilirubin 0.2 Direct Bilirubin 0.00 Indirect Bilirubin 0.2 Aspartate Amino Transf (AST/SGOT) 44 Alanine Aminotransferase (ALT/SGPT) 29 Alkaline Phosphatase 60 Total Protein 6.9 Albumin 3.4 Globulin 3.50 H Albumin/Globulin Ratio 0.97 White Blood Count 14.9 H Red Blood Count 4.11 L Hemoglobin 11.5 L Hematocrit 35.2 L Mean Corpuscular Volume 85.6 Mean Corpuscular Hemoglobin 28.0 L Mean Corpuscular Hemoglobin Concent 32.7 Red Cell Distribution Width 16.2 H Platelet Count 288 Mean Platelet Volume 9.2 Neutrophils % 80.6 H Lymphocytes % 10.9 L Monocytes % 7.9 Eosinophils % 0.0 Basophils % 0.1 Nucleated Red Blood Cells % 0.0 Neutrophils # 12.0 H Lymphocytes # 1.6 Monocytes # 1.2 H Eosinophils # 0.0 Basophils # 0.0 Nucleated Red Blood Cells # 0.0 Medications Medications Current Medications Hydromorphone HCl (Dilaudid BOAT DISPATCHER) Q4PCA PRN IV SEVERE PAIN 8-10 Last administered on 10/22/16 20:35; Admin Dose 6 MG; Start 10/22/16 at 13:30; Stop 10/23/16 at 13:29 Meperidine HCl (Demerol BOAT DISPATCHER) Q4PCA PRN IV SEVERE PAIN 8-10; Start 10/22/16 at 13:30; Stop 10/23/16 at 13:29 Oxycodone HCl (Roxicodone) 20 mg Q3H PRN PO PAIN LEVEL 8-10; Start 10/22/16 at 13:30 Oxycodone HCl (Roxicodone) 10 mg Q3H PRN PO PAIN LEVEL 4-7; Start 10/22/16 at 13:30 Oxycodone HCl 5 mg 5 mg Q3H PRN PO PAIN LEVEL 1-3; Start 10/22/16 at 13:30 Acetaminophen (Ofirmev 1000mg/ 100ml Iv) 100 ml @ 400 mls/hr Q8H IVPB Last administered on 10/23/16 06:56; Admin Dose 400 MLS/HR; Start 10/22/16 at 13:30 ; Stop 10/24/16 at 05:44 Zolpidem Tartrate (Ambien) 5 mg HS PRN PO INSOMNIA; Start 10/22/16 at 13:30 Enoxaparin Sodium (Lovenox) 30 mg ONCE ONCE SC ; Start 10/23/16 at 08:00; Stop 10/23/16 at 08:01 Miscellaneous Information (Note) NOTE XX ; Start 10/22/16 at 13:30 Celecoxib (Celebrex) 200 mg BID PO ; Start 10/23/16 at 09:00 Dexamethasone (Decadron) 4 mg DAILY@07 IV Last administered on 10/23/16 06:57 ; Admin Dose 4 MG; Start 10/23/16 at 07:00; Stop 10/26/16 at 06:59 Pantoprazole (Protonix Tab) 40 mg DAILY@06 PO ; Start 10/24/16 at 06:00 Docusate Sodium/ Ferrous Fumarate (Amy-Sequels) 1 tab BID PO ; Start 10/23/16 at 09:00 Docusate Sodium (Colace) 200 mg BID PO ; Start 10/23/16 at 09:00; Stop 10/26/16 at 08:59 Simethicone (Mylicon) 80 mg TID PRN PO DISTENSION/GAS/BLOATING; Start 10/22/16 at 13:30 Senna/Docusate Sodium (Senokot-S) 2 tab BID PRN PO CONSTIPATION; Start at 13:30 Magnesium Hydroxide (Milk Of Mag) 30 ml HS PRN PO CONSTIPATION; Start 10/22/16 at 13:30 Bisacodyl (Dulcolax Supp) 10 mg DAILY PRN [place] CONSTIPATION; Start 10/22/16 at 13 :30 Sodium Biphosphate/ Sodium Phosphate (Fleet Enema) 133 ml DAILY PRN [place] CONSTIPATION; Start 10/22/16 at 13:30 Diphenhydramine HCl (Benadryl) 25 mg Q4H PRN IM ITCHING OR RASH; Start at 13:30 Ketorolac Tromethamine (Toradol) 15 mg DAILY@06 PRN INJ ADMINSTER BY SURGEON ONLY; Start 10/23/16 at 06:00; Stop 10/27/16 at 05:59 Bupivacaine HCl/ Epinephrine Bitart (Marcaine 0.25%/ Epi (Sdv) 30 ml) 20 ml DAILY@06 PRN INJ ADMINSTER BY SURGEON ONLY; Start 10/23/16 at 06:00; Stop 10/27 at 05:59 Naloxone HCl (Narcan) 0.2 mg Q2M PRN IV DECREASED REPIRATORY RATE; Start at 13:30 Diagnostic Test (Pha) 1 ea 1 ea 02 XX ; Start 10/23/16 at 02:00 Sodium Chloride (NS) 1,000 ml @ 80 mls/hr [id number] IV Last administered on 10/22t 22:52; Admin Dose 80 MLS/HR; Start 10/22/16 at 22:00 Miscellaneous Information 1 ea NOTE XX ; Start 10/22/16 at 22:30 Glucose (Glutose) 15 gm Q15M PRN PO DECREASED GLUCOSE; Start 10/22/16 at 22:30 Glucose (Glutose) 22.5 gm Q15M PRN PO DECREASED GLUCOSE; Start 10/22/16 at 22: 30 Dextrose (D50w Syringe) 25 ml Q15M PRN IV DECREASED GLUCOSE; Start 10/22/16 at 22:30 Dextrose (D50w Syringe) 50 ml Q15M PRN IV DECREASED GLUCOSE; Start 10/22/16 at 22:30 Glucagon (Glucagen) 1 mg Q15M PRN IM DECREASED GLUCOSE; Start 10/22/16 at 22:30 Glucose (Glutose) 15 gm Q15M PRN BUCCAL DECREASED GLUCOSE; Start 10/22/16 at 22 :30 Allopurinol (Zyloprim) 300 mg AM PO ; Start 10/23/16 at 09:00 Latanoprost (Xalatan) 1 drop HS BOTH EYES ; Start 10/23/16 at 21:00 Carvedilol (Coreg) 3.125 mg BID PO ; Start 10/23/16 at 09:00 Tamsulosin HCl (Flomax) 0.4 mg HS PO ; Start 10/23/16 at 21:00 Miscellaneous Information 2.5 ml TID OP ; Start 10/23/16 at 09:00; Status VERONIKA BELLA MD Oct 23, 2016 07:53
[2016-10-23] MEDS ORDERED: ENOXAPARIN 30 MG/0.3 ML SYG SC ONE (08:00)
[2016-10-23 08:11] VITALS: BP 115/57; RESP 18
[2016-10-23] MEDS: DOCUSATE SODIUM 100 MG CAP PO SCH ×2 (08:39→21:07)
[2016-10-23] MEDS: FERROUS FUMARATE (SR) TAB PO SCH ×2 (08:39→21:07)
[2016-10-23] MEDS: ALLOPURINOL 300 MG TAB PO SCH (08:40)
[2016-10-23] MEDS: CELECOXIB 200 MG CAP PO SCH ×2 (08:40→21:07)
[2016-10-23] MEDS ORDERED: NON-FORMULARY/PATIENT OWN MED (Ferrous Sulfate (Iron) 325 MG) PO SCH (09:00)
[2016-10-23] MEDS ORDERED: NON-FORMULARY/PATIENT OWN MED (Olopatadine HCl (Pazeo) 2.5 ML) XX SCH (09:00)
[2016-10-23] MEDS: SOD CHLORIDE 0.9% 1,000 ML IV SCH ×2 (10:30→23:00)
[2016-10-23] MEDS: oxyCODONE 5 MG TAB PO PRN ×3 (12:01→20:05)
[2016-10-23 14:00] VITALS: BP 114/59; RESP 18
[2016-10-23 20:00] VITALS: BP 132/61; RESP 19
[2016-10-23] MEDS: TAMSULOSIN (SR) 0.4 MG CAP PO SCH (21:07)
[2016-10-23] MEDS: LATANOPROST 0.005% 2.5 ML OPH BOTH EYES SCH (21:07)
[2016-10-24] MEDS: oxyCODONE 5 MG TAB PO PRN ×8 (00:21→21:44)
[2016-10-24 02:00] VITALS: BP 126/66; RESP 19
[2016-10-24] MEDS: ACCU-CHEK XX SCH (02:00)
[2016-10-24] MEDS: PANTOPRAZOLE (EC) 40 MG TAB PO SCH (05:13)
[2016-10-24] MEDS: ACETAMINOPHEN 1000MG/100ML IV 100 ML IVPB SCH (05:13)
[2016-10-24] MEDS: DEXAMETHASONE 4 MG/ML 1 ML INJ IV SCH (06:27)
[2016-10-24] MEDS: INSULIN ASPART [NOVOLOG] 3 ML PEN SC SCH ×4 (07:50→21:00)
[2016-10-24 08:00] VITALS: BP 114/58; RESP 16
[2016-10-24] MEDS: ALLOPURINOL 300 MG TAB PO SCH (08:30)
[2016-10-24] MEDS: FERROUS FUMARATE (SR) TAB PO SCH ×2 (08:30→20:45)
[2016-10-24] MEDS: CELECOXIB 200 MG CAP PO SCH ×2 (08:30→20:45)
[2016-10-24] MEDS: DOCUSATE SODIUM 100 MG CAP PO SCH ×2 (08:30→20:45)
[2016-10-24 09:55] LABS: BASOPHILS % 0.2 % (0.0-2.0); EOSINOPHILS # 0.1 10^3/ul (0.0-0.5); EOSINOPHILS % 0.5 % (0.0-7.0); HEMATOCRIT 34.5 % (42.0-52.0); LYMPHOCYTES # 0.9 10^3/ul (0.8-2.9); LYMPHOCYTES % 6.1 % (15.0-51.0); MEAN CORPUSCULAR HEMOGLOBIN 27.4 pg (29.0-33.0); MEAN CORPUSCULAR HGB CONC 31.9 g/dl (32.0-37.0); MEAN CORPUSCULAR VOLUME 85.8 fl (82.0-101.0); MEAN PLATELET VOLUME 8.8 fl (7.4-10.4); MONOCYTE # 1.2 10^3/ul (0.3-0.9); MONOCYTES % 7.6 % (0.0-11.0); NEUTROPHIL # 12.9 10^3/ul (1.6-7.5); PLATELET COUNT 250 10^3/UL (140-415); RED BLOOD COUNT 4.02 10^6/ul (4.70-6.10); RED CELL DISTRIBUTION WIDTH 16.8 % (11.5-14.5); WHITE BLOOD COUNT 15.2 10^3/ul (4.8-10.8)
[2016-10-24] MEDS ORDERED: WARFARIN 5 MG TAB PO ONE (10:00)
--- NOTE | 2016-10-24 10:04 | CONS ---
Date/Time of Note Date/Time of Note DATE: 10/24/16 TIME: 09:48 Assessment/Plan Assessment/Plan Chief Complaint/Hosp Course 1) Mechanical MVR (currently OFF coumadin) 2) Chronic AFIB 3) PPM 4) EF 50% Problems: Additional Assessment/Plan 1) Coumadin 5 mg (per ortho note coumadin is ok) 2) Recommend lovenox therapeutic at the latest on day 4 after surgery given mechanical MVR and risk of CVA Consultation Date/Type/Reason Admit Date/Time Oct 22, 2016 at 05:53 Initial Consult Date Type of Consultation: cv 24 HR Interval Summary Free Text/Dictation incisional pain, no chest pain, no sob, no syncope Detailed Summary Respiratory: no complaints Cardiovascular: no complaints Gastrointestinal: no complaints Musculoskeletal: no complaints Neurologic: no complaints Exam/Review of Systems Vital Signs Vitals Vital Signs Date Time Temp Pulse Resp B/P Pulse Ox O2 Delivery O2 Flow Rate FiO2 10/24/16 08:00 98.0 67 16 114/58 97 10/23/16 20:00 Nasal Cannula 2.0 10/22/16 07:27 21 Intake and Output 10/23/16 10/23/16 10/24/16 15:00 23:00 07:00 Intake Total 600 ml 100 ml 800 ml Output Total 80 ml 1620 ml Balance 600 ml 20 ml -820 ml Exam Constitutional: alert, oriented Head: atraumatic, normocephalic Neck: supple Respiratory: clear to auscultation Cardiovascular: irregular rhythm Gastrointestinal: soft Musculoskeletal: nl extremities to inspection Extremities: normal pulses Neurological: RECYCLING SPECIALIST II-XII intact Results Result Diagram: 10/23/16 0440 10/23/16 0439 Results 24 hrs Laboratory Tests Test 10/23/16 12:59 10/23/16 17:52 10/23/16 21:05 10/24/16 08:29 Bedside Glucose 136 153 108 116 Medications Medications Current Medications Oxycodone HCl (Roxicodone) 20 mg Q3H PRN PO PAIN LEVEL 8-10 Last administered on 10/24/16 08:27; Admin Dose 20 MG; Start 10/22/16 at 13:30 Oxycodone HCl (Roxicodone) 10 mg Q3H PRN PO PAIN LEVEL 4-7 Last administered on 10/24/16 01:23; Admin Dose 10 MG; Start 10/22/16 at 13:30 Oxycodone HCl (Roxicodone) 5 mg Q3H PRN PO PAIN LEVEL 1-3; Start 10/22/16 at 13 :30 Zolpidem Tartrate (Ambien) 5 mg HS PRN PO INSOMNIA; Start 10/22/16 at 13:30 Miscellaneous Information (Note) NOTE XX ; Start 10/22/16 at 13:30 Celecoxib (Celebrex) 200 mg BID PO Last administered on 10/24/16 08:30; Admin Dose 200 MG; Start 10/23/16 at 09:00 Dexamethasone (Decadron) 4 mg DAILY@07 IV Last administered on 10/24/16 06:27 ; Admin Dose 4 MG; Start 10/23/16 at 07:00; Stop 10/26/16 at 06:59 Pantoprazole (Protonix Tab) 40 mg DAILY@06 PO Last administered on 10/24/16 05 :13; Admin Dose 40 MG; Start 10/24/16 at 06:00 Docusate Sodium/ Ferrous Fumarate (Amy-Sequels) 1 tab BID PO Last administered on 10/24/16 08:30; Admin Dose 1 TAB; Start 10/23/16 at 09:00 Docusate Sodium (Colace) 200 mg BID PO Last administered on 10/24/16 08:30; Admin Dose 200 MG; Start 10/23/16 at 09:00; Stop 10/26/16 at 08:59 Simethicone (Mylicon) 80 mg TID PRN PO DISTENSION/GAS/BLOATING; Start 10/22/16 at 13:30 Senna/Docusate Sodium (Senokot-S) 2 tab BID PRN PO CONSTIPATION; Start at 13:30 Magnesium Hydroxide (Milk Of Mag) 30 ml HS PRN PO CONSTIPATION Last administered on 10/23/16 20:05; Admin Dose 30 ML; Start 10/22/16 at 13:30 Bisacodyl (Dulcolax Supp) 10 mg DAILY PRN [place] CONSTIPATION; Start 10/22/16 at 13 :30 Sodium Biphosphate/ Sodium Phosphate (Fleet Enema) 133 ml DAILY PRN [place] CONSTIPATION; Start 10/22/16 at 13:30 Diphenhydramine HCl (Benadryl) 25 mg Q4H PRN IM ITCHING OR RASH Last administered on 10/24/16 03:27; Admin Dose 25 MG; Start 10/22/16 at 13:30 Ketorolac Tromethamine (Toradol) 15 mg DAILY@06 PRN INJ ADMINSTER BY SURGEON ONLY; Start 10/23/16 at 06:00; Stop 10/27/16 at 05:59 Bupivacaine HCl/ Epinephrine Bitart (Marcaine 0.25%/ Epi (Sdv) 30 ml) 20 ml DAILY@06 PRN INJ ADMINSTER BY SURGEON ONLY; Start 10/23/16 at 06:00; Stop 10/27 at 05:59 Naloxone HCl (Narcan) 0.2 mg Q2M PRN IV DECREASED REPIRATORY RATE; Start at 13:30 Diagnostic Test (Pha) 1 ea 1 ea 02 XX ; Start 10/23/16 at 02:00 Sodium Chloride (NS) 1,000 ml @ 80 mls/hr [id number] IV Last administered on 10/22 22:52; Admin Dose 80 MLS/HR; Start 10/22/16 at 22:00 Miscellaneous Information 1 ea NOTE XX ; Start 10/22/16 at 22:30 Glucose (Glutose) 15 gm Q15M PRN PO DECREASED GLUCOSE; Start 10/22/16 at 22:30 Glucose (Glutose) 22.5 gm Q15M PRN PO DECREASED GLUCOSE; Start 10/22/16 at 22: 30 Dextrose (D50w Syringe) 25 ml Q15M PRN IV DECREASED GLUCOSE; Start 10/22/16 at 22:30 Dextrose (D50w Syringe) 50 ml Q15M PRN IV DECREASED GLUCOSE; Start 10/22/16 at 22:30 Glucagon (Glucagen) 1 mg Q15M PRN IM DECREASED GLUCOSE; Start 10/22/16 at 22:30 Glucose (Glutose) 15 gm Q15M PRN BUCCAL DECREASED GLUCOSE; Start 10/22/16 at 22 :30 Allopurinol (Zyloprim) 300 mg AM PO Last administered on 10/24/16 08:30; Admin Dose 300 MG; Start 10/23/16 at 09:00 Latanoprost (Xalatan) 1 drop HS BOTH EYES Last administered on 10/23/16 21:07 ; Admin Dose 1 DROP; Start 10/23/16 at 21:00 Carvedilol (Coreg) 3.125 mg BID PO Last administered on 10/24/16 08:31; Admin Dose 3.125 MG; Start 10/23/16 at 09:00 Tamsulosin HCl (Flomax) 0.4 mg HS PO Last administered on 10/23/16 21:07; Admin Dose 0.4 MG; Start 10/23/16 at 21:00 Miscellaneous Information 2.5 ml TID XX ; Start 10/23/16 at 09:00; Status UNV MARY PEARL MD Oct 24, 2016 10:04
[2016-10-24 10:15] LABS: INR 1.32; PROTIME 16.5 Sec (12.2-14.2); PT RATIO 1.3
[2016-10-24 10:16] LABS: CALCIUM 8.6 mg/dl (8.4-10.2); CREATININE 0.77 mg/dl (0.61-1.24); MAGNESIUM 2.5 mg/dl (1.7-2.5); PHOSPHORUS 1.9 mg/dl (2.5-4.9); POTASSIUM 4.2 mmol/L (3.5-5.1)
--- NOTE | 2016-10-24 10:42 | CONS ---
Date/Time of Note Date/Time of Note DATE: 10/24/16 TIME: 10:36 Assessment/Plan Assessment/Plan Additional Assessment/Plan #1 left total knee arthroplasty: by Ortho following, doing well, Plan for PT today #2 diabetes mellitus: controlled, sliding scale #3 glaucoma: Resume eyedrops #4 mechanical heart valve: - restarted on Coumadin by cardiology, pt needs therapeutic INR prior to discharge due to mechanical heart valve #5 hypertension: BP controlled, Monitor BP # 6 BPH- on Flomax resumed his home meds of Bumex and KCl, monitor symptoms and PT follow up #6 DVT: SCD,coumadin GI prophylaxis; Pepcid 20mg IV BID D/c IVF, pt has been tolerating po diet well Consultation Date/Type/Reason Admit Date/Time Oct 22, 2016 at 05:53 Initial Consult Date Type of Consultation: INTERNAL MEDICINE Referring Provider: ARIANA AC MD 24 HR Interval Summary Free Text/Dictation doing ok, participating in Physical therapy, Cardiology planning to start coumadin Exam/Review of Systems Vital Signs Vitals Vital Signs Date Time Temp Pulse Resp B/P Pulse Ox O2 Delivery O2 Flow Rate FiO2 10/24/16 08:00 98.0 67 16 114/58 97 10/23/16 20:00 Nasal Cannula 2.0 10/22/16 07:27 21 Intake and Output 10/23/16 10/23/16 10/24/16 15:00 23:00 07:00 Intake Total 600 ml 100 ml 800 ml Output Total 80 ml 1620 ml Balance 600 ml 20 ml -820 ml Exam General: This is a pleasant obese male laying in bed in no acute distress HEENT: Atraumatic, normocephalic. The pupils are equal, round and reactive. Extraocular motor are intact Neck: Supple with full range of motion. No rigidity or meningismus Chest: Nontender Lungs: Clear to auscultation bilaterally no crackles rales or wheezing Heart: Normal S1-S2, regular rhythm, click murmur at the fifth left intercostal space Abdomen: Soft , nontender, nondistended , bowel sounds are present. No guarding no rebound tenderness , No masses or organomegaly. No costovertebral temporal angle mass Extremities: Left knee in brace dressing clean dry and intact connected to drain which is putting out serosanguineous fluid. Neurologic: Normal mental status, speech normal, cranial nerves II through XII are intact, motor and sensory are intact, no focal weakness Results Result Diagram: 10/24/16 0947 10/24/16 0947 Results 24 hrs Laboratory Tests Test 10/23/16 12:59 10/23/16 17:52 10/23/16 21:05 10/24/16 08:29 Bedside Glucose 136 153 108 116 Test 10/24/16 09:47 White Blood Count 15.2 H Red Blood Count 4.02 L Hemoglobin 11.0 L Hematocrit 34.5 L Mean Corpuscular Volume 85.8 Mean Corpuscular Hemoglobin 27.4 L Mean Corpuscular Hemoglobin Concent 31.9 L Red Cell Distribution Width 16.8 H Platelet Count 250 Mean Platelet Volume 8.8 Neutrophils % 85.0 H Lymphocytes % 6.1 L Monocytes % 7.6 Eosinophils % 0.5 Basophils % 0.2 Nucleated Red Blood Cells % 0.0 Neutrophils # 12.9 H Lymphocytes # 0.9 Monocytes # 1.2 H Eosinophils # 0.1 Basophils # 0.0 Nucleated Red Blood Cells # 0.0 Prothrombin Time 16.5 H Prothrombin Time Ratio 1.3 INR International Normalized Ratio 1.32 Sodium Level 138 Potassium Level 4.2 Chloride Level 104 Carbon Dioxide Level 30 Anion Gap 8 Blood Urea Nitrogen 12 Creatinine 0.77 Glucose Level 137 Calcium Level 8.6 Phosphorus Level 1.9 L Magnesium Level 2.5 Medications Medications Current Medications Oxycodone HCl (Roxicodone) 20 mg Q3H PRN PO PAIN LEVEL 8-10 Last administered on 10/24/16 08:27; Admin Dose 20 MG; Start 10/22/16 at 13:30 Oxycodone HCl (Roxicodone) 10 mg Q3H PRN PO PAIN LEVEL 4-7 Last administered on 10/24/16 01:23; Admin Dose 10 MG; Start 10/22/16 at 13:30 Oxycodone HCl (Roxicodone) 5 mg Q3H PRN PO PAIN LEVEL 1-3; Start 10/22/16 at 13 :30 Zolpidem Tartrate (Ambien) 5 mg HS PRN PO INSOMNIA; Start 10/22/16 at 13:30 Miscellaneous Information (Note) NOTE XX ; Start 10/22/16 at 13:30 Celecoxib (Celebrex) 200 mg BID PO Last administered on 10/24/16 08:30; Admin Dose 200 MG; Start 10/23/16 at 09:00 Dexamethasone (Decadron) 4 mg DAILY@07 IV Last administered on 10/24/16 06:27 ; Admin Dose 4 MG; Start 10/23/16 at 07:00; Stop 10/26/16 at 06:59 Pantoprazole (Protonix Tab) 40 mg DAILY@06 PO Last administered on 10/24/16 05 :13; Admin Dose 40 MG; Start 10/24/16 at 06:00 Docusate Sodium/ Ferrous Fumarate (Amy-Sequels) 1 tab BID PO Last administered on 10/24/16 08:30; Admin Dose 1 TAB; Start 10/23/16 at 09:00 Docusate Sodium (Colace) 200 mg BID PO Last administered on 10/24/16 08:30; Admin Dose 200 MG; Start 10/23/16 at 09:00; Stop 10/26/16 at 08:59 Simethicone (Mylicon) 80 mg TID PRN PO DISTENSION/GAS/BLOATING; Start 10/22/16 at 13:30 Senna/Docusate Sodium (Senokot-S) 2 tab BID PRN PO CONSTIPATION; Start at 13:30 Magnesium Hydroxide (Milk Of Mag) 30 ml HS PRN PO CONSTIPATION Last administered on 10/23/16 20:05; Admin Dose 30 ML; Start 10/22/16 at 13:30 Bisacodyl (Dulcolax Supp) 10 mg DAILY PRN [place] CONSTIPATION; Start 10/22/16 at 13 :30 Sodium Biphosphate/ Sodium Phosphate (Fleet Enema) 133 ml DAILY PRN [place] CONSTIPATION; Start 10/22/16 at 13:30 Diphenhydramine HCl (Benadryl) 25 mg Q4H PRN IM ITCHING OR RASH Last administered on 10/24/16 03:27; Admin Dose 25 MG; Start 10/22/16 at 13:30 Ketorolac Tromethamine (Toradol) 15 mg DAILY@06 PRN INJ ADMINSTER BY SURGEON ONLY; Start 10/23/16 at 06:00; Stop 10/27/16 at 05:59 Bupivacaine HCl/ Epinephrine Bitart (Marcaine 0.25%/ Epi (Sdv) 30 ml) 20 ml DAILY@06 PRN INJ ADMINSTER BY SURGEON ONLY; Start 10/23/16 at 06:00; Stop 10/27 at 05:59 Naloxone HCl (Narcan) 0.2 mg Q2M PRN IV DECREASED REPIRATORY RATE; Start at 13:30 Diagnostic Test (Pha) 1 ea 1 ea 02 XX ; Start 10/23/16 at 02:00 Sodium Chloride (NS) 1,000 ml @ 80 mls/hr [id number] IV Last administered on 10/22 22:52; Admin Dose 80 MLS/HR; Start 10/22/16 at 22:00 Miscellaneous Information 1 ea NOTE XX ; Start 10/22/16 at 22:30 Glucose (Glutose) 15 gm Q15M PRN PO DECREASED GLUCOSE; Start 10/22/16 at 22:30 Glucose (Glutose) 22.5 gm Q15M PRN PO DECREASED GLUCOSE; Start 10/22/16 at 22: 30 Dextrose (D50w Syringe) 25 ml Q15M PRN IV DECREASED GLUCOSE; Start 10/22/16 at 22:30 Dextrose (D50w Syringe) 50 ml Q15M PRN IV DECREASED GLUCOSE; Start 10/22/16 at 22:30 Glucagon (Glucagen) 1 mg Q15M PRN IM DECREASED GLUCOSE; Start 10/22/16 at 22:30 Glucose (Glutose) 15 gm Q15M PRN BUCCAL DECREASED GLUCOSE; Start 10/22/16 at 22 :30 Allopurinol (Zyloprim) 300 mg AM PO Last administered on 10/24/16 08:30; Admin Dose 300 MG; Start 10/23/16 at 09:00 Latanoprost (Xalatan) 1 drop HS BOTH EYES Last administered on 10/23/16 21:07 ; Admin Dose 1 DROP; Start 10/23/16 at 21:00 Carvedilol (Coreg) 3.125 mg BID PO Last administered on 10/24/16 08:31; Admin Dose 3.125 MG; Start 10/23/16 at 09:00 Tamsulosin HCl (Flomax) 0.4 mg HS PO Last administered on 10/23/16 21:07; Admin Dose 0.4 MG; Start 10/23/16 at 21:00 Miscellaneous Information 2.5 ml TID XX ; Start 10/23/16 at 09:00; Status UNV FARRUKH OTT MD Oct 24, 2016 10:42
[2016-10-24 14:00] VITALS: BP 120/62; RESP 15
[2016-10-24] MEDS ORDERED: metFORMIN (XR) 500 MG TAB PO SCH (17:55)
--- NOTE | 2016-10-24 18:07 | PN ---
DATE: 10/24/2016 SUBJECTIVE DATA: The patient is making excellent progress. There has been a fair amount of drainage from the Hemovac, which is not unexpected since he had a fairly extensive surgery. The lateral release of the patella particularly was somewhat bloody, despite coagulating as many vessels as we could. He has minimal pain. He is doing well with physical therapy. OBJECTIVE: Temperature 98.5. Hemoglobin 11.0 white cell count 7.4. The wound looks excellent, clean and healing well. The patient is able to lift his legs from the bed with full extension and flex the knee to 90 degrees. Dictated By: Eldon Mckinnon MD /artur/randa /Document#: [id number]
[2016-10-24] MEDS: LATANOPROST 0.005% 2.5 ML OPH BOTH EYES SCH (20:44)
[2016-10-24] MEDS: POTASSIUM CHLORIDE (SR) 10 MEQ TAB PO SCH (20:45)
[2016-10-24] MEDS: FAMOTIDINE 20 MG TAB PO SCH (20:45)
[2016-10-24] MEDS: TAMSULOSIN (SR) 0.4 MG CAP PO SCH (20:45)
[2016-10-24 20:54] VITALS: BP 113/64; RESP 19
[2016-10-25] MEDS: ACCU-CHEK XX SCH (02:00)
[2016-10-25 02:30] VITALS: BP 120/62; PULSE 63; RESP 20
[2016-10-25] MEDS: oxyCODONE 5 MG TAB PO PRN ×4 (03:48→17:12)
[2016-10-25 04:38] VITALS: BP 120/56; RESP 18
[2016-10-25 05:03] LABS: BASOPHIL # 0.1 10^3/ul (0.0-0.1); BASOPHILS % 0.4 % (0.0-2.0); EOSINOPHILS # 0.4 10^3/ul (0.0-0.5); EOSINOPHILS % 2.9 % (0.0-7.0); HEMATOCRIT 33.1 % (42.0-52.0); HEMOGLOBIN 10.5 g/dl (14.0-18.0); LYMPHOCYTES # 2.7 10^3/ul (0.8-2.9); LYMPHOCYTES % 22.4 % (15.0-51.0); MEAN CORPUSCULAR HEMOGLOBIN 27.3 pg (29.0-33.0); MEAN CORPUSCULAR HGB CONC 31.7 g/dl (32.0-37.0); MEAN PLATELET VOLUME 9.2 fl (7.4-10.4); MONOCYTE # 1.2 10^3/ul (0.3-0.9); MONOCYTES % 9.7 % (0.0-11.0); NEUTROPHIL # 7.6 10^3/ul (1.6-7.5); NEUTROPHILS % 64.2 % (39.0-77.0); PLATELET COUNT 272 10^3/UL (140-415); RED BLOOD COUNT 3.85 10^6/ul (4.70-6.10); RED CELL DISTRIBUTION WIDTH 16.8 % (11.5-14.5); WHITE BLOOD COUNT 11.9 10^3/ul (4.8-10.8)
[2016-10-25 05:13] LABS: INR 1.36; PROTIME 16.8 Sec (12.2-14.2); PT RATIO 1.3
[2016-10-25] MEDS: PANTOPRAZOLE (EC) 40 MG TAB PO SCH (06:24)
[2016-10-25] MEDS: DEXAMETHASONE 4 MG/ML 1 ML INJ IV SCH (06:24)
[2016-10-25 07:42] VITALS: BP 106/57; RESP 17
--- NOTE | 2016-10-25 08:33 | CONS ---
Date/Time of Note Date/Time of Note DATE: 10/25/16 TIME: 08:29 Consultation Date/Type/Reason Admit Date/Time Oct 22, 2016 at 05:53 Initial Consult Date Type of Consultation: INTERNAL MEDICINE Reason for Consultation mechanical mitral valve Referring Provider: ARIANA AC MD 24 HR Interval Summary Free Text/Dictation Chief Complaint/Hosp Course 1) Mechanical MVR (currently OFF coumadin) 2) Chronic AFIB 3) PPM 4) EF 50% Problems: Additional Assessment/Plan 1) INR remains low Coumadin 6 mg today. At home pt take 5mg for three days then 6mg on day four(per ortho note coumadin is ok) 2) Recommend lovenox as soon as feasible from surgery perspective given risk of CVA Constitutional: no complaints Exam/Review of Systems Vital Signs Vitals Vital Signs Date Time Temp Pulse Resp B/P Pulse Ox O2 Delivery O2 Flow Rate FiO2 10/25/16 07:42 98.3 60 17 106/57 97 10/25/16 02:30 Nasal Cannula 2.0 10/22/16 07:27 21 Intake and Output 10/24/16 10/24/16 10/25/16 15:00 23:00 07:00 Intake Total 900 ml 1000 ml Output Total 1600 ml Balance 900 ml -600 ml Exam Constitutional: alert, oriented Psych: no complaints Respiratory: clear to auscultation Cardiovascular: S3, S4, bruits, diastolic murmur, edema, gallop, irregular rhythm, jugular venous distention (JVD), murmurs/extra sounds, nl pulses, other (mechanical valve), regular rate and rhythm, rub, systolic murmur Extremities: other (surgical drain in place) Results Result Diagram: 10/25/16 0426 10/24/16 0947 Results 24 hrs Laboratory Tests Test 10/24/16 09:47 10/24/16 12:42 10/24/16 17:51 10/24/16 20:43 White Blood Count 15.2 H Red Blood Count 4.02 L Hemoglobin 11.0 L Hematocrit 34.5 L Mean Corpuscular Volume 85.8 Mean Corpuscular Hemoglobin 27.4 L Mean Corpuscular Hemoglobin Concent 31.9 L Red Cell Distribution Width 16.8 H Platelet Count 250 Mean Platelet Volume 8.8 Neutrophils % 85.0 H Lymphocytes % 6.1 L Monocytes % 7.6 Eosinophils % 0.5 Basophils % 0.2 Nucleated Red Blood Cells % 0.0 Neutrophils # 12.9 H Lymphocytes # 0.9 Monocytes # 1.2 H Eosinophils # 0.1 Basophils # 0.0 Nucleated Red Blood Cells # 0.0 Prothrombin Time 16.5 H Prothrombin Time Ratio 1.3 INR International Normalized Ratio 1.32 Sodium Level 138 Potassium Level 4.2 Chloride Level 104 Carbon Dioxide Level 30 Anion Gap 8 Blood Urea Nitrogen 12 Creatinine 0.77 Glucose Level 137 Calcium Level 8.6 Phosphorus Level 1.9 L Magnesium Level 2.5 Bedside Glucose 141 129 110 Test 10/25/16 04:26 White Blood Count 11.9 #H Red Blood Count 3.85 L Hemoglobin 10.5 L Hematocrit 33.1 L Mean Corpuscular Volume 86.0 Mean Corpuscular Hemoglobin 27.3 L Mean Corpuscular Hemoglobin Concent 31.7 L Red Cell Distribution Width 16.8 H Platelet Count 272 Mean Platelet Volume 9.2 Neutrophils % 64.2 Lymphocytes % 22.4 Monocytes % 9.7 Eosinophils % 2.9 Basophils % 0.4 Nucleated Red Blood Cells % 0.0 Neutrophils # 7.6 H Lymphocytes # 2.7 Monocytes # 1.2 H Eosinophils # 0.4 Basophils # 0.1 Nucleated Red Blood Cells # 0.0 Prothrombin Time 16.8 H Prothrombin Time Ratio 1.3 INR International Normalized Ratio 1.36 Medications Medications Current Medications Oxycodone HCl (Roxicodone) 20 mg Q3H PRN PO PAIN LEVEL 8-10 Last administered on 10/25/16 06:49; Admin Dose 20 MG; Start 10/22/16 at 13:30 Oxycodone HCl (Roxicodone) 10 mg Q3H PRN PO PAIN LEVEL 4-7 Last administered on 10/24/16 01:23; Admin Dose 10 MG; Start 10/22/16 at 13:30 Oxycodone HCl (Roxicodone) 5 mg Q3H PRN PO PAIN LEVEL 1-3; Start 10/22/16 at 13 :30 Zolpidem Tartrate (Ambien) 5 mg HS PRN PO INSOMNIA; Start 10/22/16 at 13:30 Miscellaneous Information (Note) NOTE XX ; Start 10/22/16 at 13:30 Celecoxib (Celebrex) 200 mg BID PO Last administered on 10/24/16 20:45; Admin Dose 200 MG; Start 10/23/16 at 09:00 Dexamethasone (Decadron) 4 mg DAILY@07 IV Last administered on 10/25/16 06:24 ; Admin Dose 4 MG; Start 10/23/16 at 07:00; Stop 10/26/16 at 06:59 Pantoprazole (Protonix Tab) 40 mg DAILY@06 PO Last administered on 10/25/16 06 :24; Admin Dose 40 MG; Start 10/24/16 at 06:00 Docusate Sodium/ Ferrous Fumarate (Amy-Sequels) 1 tab BID PO Last administered on 10/24/16 20:45; Admin Dose 1 TAB; Start 10/23/16 at 09:00 Docusate Sodium (Colace) 200 mg BID PO Last administered on 10/24/16 20:45; Admin Dose 200 MG; Start 10/23/16 at 09:00; Stop 10/26/16 at 08:59 Simethicone (Mylicon) 80 mg TID PRN PO DISTENSION/GAS/BLOATING; Start 10/22/16 at 13:30 Senna/Docusate Sodium (Senokot-S) 2 tab BID PRN PO CONSTIPATION; Start at 13:30 Magnesium Hydroxide (Milk Of Mag) 30 ml HS PRN PO CONSTIPATION Last administered on 10/23/16 20:05; Admin Dose 30 ML; Start 10/22/16 at 13:30 Bisacodyl (Dulcolax Supp) 10 mg DAILY PRN [place] CONSTIPATION Last administered on 10/25/16 03:48; Admin Dose 10 MG; Start 10/22/16 at 13:30 Sodium Biphosphate/ Sodium Phosphate (Fleet Enema) 133 ml DAILY PRN [place] CONSTIPATION; Start 10/22/16 at 13:30 Diphenhydramine HCl (Benadryl) 25 mg Q4H PRN IM ITCHING OR RASH Last administered on 10/24/16 03:27; Admin Dose 25 MG; Start 10/22/16 at 13:30 Ketorolac Tromethamine (Toradol) 15 mg DAILY@06 PRN INJ ADMINSTER BY SURGEON ONLY; Start 10/23/16 at 06:00; Stop 10/27/16 at 05:59 Bupivacaine HCl/ Epinephrine Bitart (Marcaine 0.25%/ Epi (Sdv) 30 ml) 20 ml DAILY@06 PRN INJ ADMINSTER BY SURGEON ONLY; Start 10/23/16 at 06:00; Stop 10/27 at 05:59 Naloxone HCl (Narcan) 0.2 mg Q2M PRN IV DECREASED REPIRATORY RATE; Start at 13:30 Diagnostic Test (Pha) (Accu-Chek) 1 ea 02 XX ; Start 10/23/16 at 02:00 Miscellaneous Information 1 ea NOTE XX ; Start 10/22/16 at 22:30 Glucose (Glutose) 15 gm Q15M PRN PO DECREASED GLUCOSE; Start 10/22/16 at 22:30 Glucose (Glutose) 22.5 gm Q15M PRN PO DECREASED GLUCOSE; Start 10/22/16 at 22: 30 Dextrose (D50w Syringe) 25 ml Q15M PRN IV DECREASED GLUCOSE; Start 10/22/16 at 22:30 Dextrose (D50w Syringe) 50 ml Q15M PRN IV DECREASED GLUCOSE; Start 10/22/16 at 22:30 Glucagon (Glucagen) 1 mg Q15M PRN IM DECREASED GLUCOSE; Start 10/22/16 at 22:30 Glucose (Glutose) 15 gm Q15M PRN BUCCAL DECREASED GLUCOSE; Start 10/22/16 at 22 :30 Allopurinol (Zyloprim) 300 mg AM PO Last administered on 10/24/16 08:30; Admin Dose 300 MG; Start 10/23/16 at 09:00 Latanoprost (Xalatan) 1 drop HS BOTH EYES Last administered on 10/24/16 20:44 ; Admin Dose 1 DROP; Start 10/23/16 at 21:00 Carvedilol (Coreg) 3.125 mg BID PO Last administered on 10/24/16 20:45; Admin Dose 3.125 MG; Start 10/23/16 at 09:00 Tamsulosin HCl (Flomax) 0.4 mg HS PO Last administered on 10/24/16 20:45; Admin Dose 0.4 MG; Start 10/23/16 at 21:00 Miscellaneous Information 2.5 ml TID XX ; Start 10/23/16 at 09:00; Status UNV Bumetanide (Bumex) 1 mg DAILY PO ; Start 10/25/16 at 09:00 Loratadine (Claritin) 10 mg DAILY PO ; Start 10/25/16 at 09:00 Potassium Chloride (Klor-Con 10) 10 meq BID PO Last administered on 10/24/16 20:45; Admin Dose 10 MEQ; Start 10/24/16 at 21:00 Famotidine (Pepcid) 20 mg BID PO Last administered on 10/24/16 20:45; Admin Dose 20 MG; Start 10/24/16 at 21:00 HIEU ELI MD Oct 25, 2016 08:32
[2016-10-25] MEDS: INSULIN ASPART [NOVOLOG] 3 ML PEN SC SCH ×2 (08:45→12:57)
[2016-10-25] MEDS ORDERED: LORATADINE 10 MG TAB PO SCH (09:00)
[2016-10-25] MEDS ORDERED: WARFARIN 3 MG TAB PO SCH (09:00)
[2016-10-25] MEDS ORDERED: BUMETANIDE 1 MG TAB PO SCH (09:00)
[2016-10-25] MEDS: FERROUS FUMARATE (SR) TAB PO SCH (09:10)
[2016-10-25] MEDS: FAMOTIDINE 20 MG TAB PO SCH (09:10)
[2016-10-25] MEDS: DOCUSATE SODIUM 100 MG CAP PO SCH (09:10)
[2016-10-25] MEDS: POTASSIUM CHLORIDE (SR) 10 MEQ TAB PO SCH (09:11)
[2016-10-25] MEDS: CELECOXIB 200 MG CAP PO SCH (09:11)
[2016-10-25] MEDS: ALLOPURINOL 300 MG TAB PO SCH (09:11)
[2016-10-25] MEDS ORDERED: [UNRECOGNIZED DRUG - REMARK] XX SCH (11:00)
--- NOTE | 2016-10-25 14:23 | PN ---
Date/Time of Note Date/Time of Note DATE: 10/25/16 TIME: 14:21 Assessment/Plan VTE Prophylaxis VTE Prophylaxis Intervention: SCD's (coumadin ) Lines/Catheters IV [facility] Urinary Cath still in place: No Assessment/Plan Assessment/Plan #1 left total knee arthroplasty #2 diabetes mellitus: controlled, sliding scale #3 glaucoma: Resume eyedrops #4 mechanical heart valve: - restarted on Coumadin by cardiology, pt needs therapeutic INR prior to discharge due to mechanical heart valve #5 hypertension: BP controlled, Monitor BP # 6 BPH- on Flomax #6 DVT: SCD,coumadin GI prophylaxis; Pepcid 20mg IV BID D/c IVF, pt has been tolerating po diet well Resume his PO meds Subjective 24 Hr Interval Summary Free Text/Dictation no acute events, SNF placement in process Exam/Review of Systems Vital Signs Vitals Vital Signs Date Time Temp Pulse Resp B/P Pulse Ox O2 Delivery O2 Flow Rate FiO2 10/25/16 07:42 98.3 60 17 106/57 97 10/25/16 02:30 Nasal Cannula 2.0 10/22/16 07:27 21 Intake and Output 10/24/16 10/24/16 10/25/16 15:00 23:00 07:00 Intake Total 900 ml 1000 ml Output Total 1600 ml Balance 900 ml -600 ml Exam Constitutional: alert Psych: no complaints Head: normocephalic Eyes: nl conjunctiva Neck: supple Respiratory: clear to auscultation, normal air movement Cardiovascular: nl pulses, regular rate and rhythm Gastrointestinal: non-tender, soft Extremities: normal pulses Neurological: PICKLING OPERATOR II-XII intact, nl mental status, nl speech, nl strength Results Result Diagram: 10/25/16 0426 10/24/16 0947 Results 24 hrs Laboratory Tests Test 10/24/16 17:51 10/24/16 20:43 10/25/16 04:26 10/25/16 08:39 Bedside Glucose 129 110 115 White Blood Count 11.9 #H Red Blood Count 3.85 L Hemoglobin 10.5 L Hematocrit 33.1 L Mean Corpuscular Volume 86.0 Mean Corpuscular Hemoglobin 27.3 L Mean Corpuscular Hemoglobin Concent 31.7 L Red Cell Distribution Width 16.8 H Platelet Count 272 Mean Platelet Volume 9.2 Neutrophils % 64.2 Lymphocytes % 22.4 Monocytes % 9.7 Eosinophils % 2.9 Basophils % 0.4 Nucleated Red Blood Cells % 0.0 Neutrophils # 7.6 H Lymphocytes # 2.7 Monocytes # 1.2 H Eosinophils # 0.4 Basophils # 0.1 Nucleated Red Blood Cells # 0.0 Prothrombin Time 16.8 H Prothrombin Time Ratio 1.3 INR International Normalized Ratio 1.36 Test 10/25/16 12:51 Bedside Glucose 122 Medications Medications Current Medications Oxycodone HCl (Roxicodone) 20 mg Q3H PRN PO PAIN LEVEL 8-10 Last administered on 10/25/16 11:48; Admin Dose 20 MG; Start 10/22/16 at 13:30 Oxycodone HCl (Roxicodone) 10 mg Q3H PRN PO PAIN LEVEL 4-7 Last administered on 10/24/16 01:23; Admin Dose 10 MG; Start 10/22/16 at 13:30 Oxycodone HCl (Roxicodone) 5 mg Q3H PRN PO PAIN LEVEL 1-3; Start 10/22/16 at 13 :30 Zolpidem Tartrate (Ambien) 5 mg HS PRN PO INSOMNIA; Start 10/22/16 at 13:30 Miscellaneous Information (Note) NOTE XX ; Start 10/22/16 at 13:30 Celecoxib (Celebrex) 200 mg BID PO Last administered on 10/25/16 09:11; Admin Dose 200 MG; Start 10/23/16 at 09:00 Dexamethasone (Decadron) 4 mg DAILY@07 IV Last administered on 10/25/16 06:24 ; Admin Dose 4 MG; Start 10/23/16 at 07:00; Stop 10/26/16 at 06:59 Pantoprazole (Protonix Tab) 40 mg DAILY@06 PO Last administered on 10/25/16 06 :24; Admin Dose 40 MG; Start 10/24/16 at 06:00 Docusate Sodium/ Ferrous Fumarate (Amy-Sequels) 1 tab BID PO Last administered on 10/25/16 09:10; Admin Dose 1 TAB; Start 10/23/16 at 09:00 Docusate Sodium (Colace) 200 mg BID PO Last administered on 10/25/16 09:10; Admin Dose 200 MG; Start 10/23/16 at 09:00; Stop 10/26/16 at 08:59 Simethicone (Mylicon) 80 mg TID PRN PO DISTENSION/GAS/BLOATING; Start 10/22/16 at 13:30 Senna/Docusate Sodium (Senokot-S) 2 tab BID PRN PO CONSTIPATION; Start at 13:30 Magnesium Hydroxide (Milk Of Mag) 30 ml HS PRN PO CONSTIPATION Last administered on 10/23/16 20:05; Admin Dose 30 ML; Start 10/22/16 at 13:30 Bisacodyl (Dulcolax Supp) 10 mg DAILY PRN [place] CONSTIPATION Last administered on 10/25/16 03:48; Admin Dose 10 MG; Start 10/22/16 at 13:30 Sodium Biphosphate/ Sodium Phosphate (Fleet Enema) 133 ml DAILY PRN [place] CONSTIPATION; Start 10/22/16 at 13:30 Diphenhydramine HCl (Benadryl) 25 mg Q4H PRN IM ITCHING OR RASH Last administered on 10/24/16 03:27; Admin Dose 25 MG; Start 10/22/16 at 13:30 Ketorolac Tromethamine (Toradol) 15 mg DAILY@06 PRN INJ ADMINSTER BY SURGEON ONLY; Start 10/23/16 at 06:00; Stop 10/27/16 at 05:59 Bupivacaine HCl/ Epinephrine Bitart (Marcaine 0.25%/ Epi (Sdv) 30 ml) 20 ml DAILY@06 PRN INJ ADMINSTER BY SURGEON ONLY; Start 10/23/16 at 06:00; Stop 10/27 at 05:59 Naloxone HCl (Narcan) 0.2 mg Q2M PRN IV DECREASED REPIRATORY RATE; Start at 13:30 Diagnostic Test (Pha) (Accu-Chek) 1 ea 02 XX ; Start 10/23/16 at 02:00 Miscellaneous Information 1 ea NOTE XX ; Start 10/22/16 at 22:30 Glucose (Glutose) 15 gm Q15M PRN PO DECREASED GLUCOSE; Start 10/22/16 at 22:30 Glucose (Glutose) 22.5 gm Q15M PRN PO DECREASED GLUCOSE; Start 10/22/16 at 22: 30 Dextrose (D50w Syringe) 25 ml Q15M PRN IV DECREASED GLUCOSE; Start 10/22/16 at 22:30 Dextrose (D50w Syringe) 50 ml Q15M PRN IV DECREASED GLUCOSE; Start 10/22/16 at 22:30 Glucagon (Glucagen) 1 mg Q15M PRN IM DECREASED GLUCOSE; Start 10/22/16 at 22:30 Glucose (Glutose) 15 gm Q15M PRN BUCCAL DECREASED GLUCOSE; Start 10/22/16 at 22 :30 Allopurinol (Zyloprim) 300 mg AM PO Last administered on 10/25/16 09:11; Admin Dose 300 MG; Start 10/23/16 at 09:00 Latanoprost (Xalatan) 1 drop HS BOTH EYES Last administered on 10/24/16 20:44 ; Admin Dose 1 DROP; Start 10/23/16 at 21:00 Carvedilol (Coreg) 3.125 mg BID PO Last administered on 10/25/16 09:12; Admin Dose 3.125 MG; Start 10/23/16 at 09:00 Tamsulosin HCl (Flomax) 0.4 mg HS PO Last administered on 10/24/16 20:45; Admin Dose 0.4 MG; Start 10/23/16 at 21:00 Miscellaneous Information 2.5 ml TID XX ; Start 10/23/16 at 09:00; Status UNV Bumetanide (Bumex) 1 mg DAILY PO Last administered on 10/25/16 09:10; Admin Dose 1 MG; Start 10/25/16 at 09:00 Loratadine (Claritin) 10 mg DAILY PO Last administered on 10/25/16 09:11; Admin Dose 10 MG; Start 10/25/16 at 09:00 Potassium Chloride (Klor-Con 10) 10 meq BID PO Last administered on 10/25/16 09:11; Admin Dose 10 MEQ; Start 10/24/16 at 21:00 Famotidine (Pepcid) 20 mg BID PO Last administered on 10/25/16 09:10; Admin Dose 20 MG; Start 10/24/16 at 21:00 Miscellaneous Information (*Order Clarification Bulletin) MEDICATION REQUIRES CLARIFICATI... Q8H XX ; Start 10/25/16 at 11:00 FARRUKH OTT MD Oct 25, 2016 14:23
[2016-10-25 15:15] VITALS: BP 122/71; PULSE 82; RESP 20
[2016-10-25] MEDS ORDERED: COU5 PO (16:56)
--- NOTE | 2016-10-26 10:08 | DS ---
Date/Time of Note Date/Time of Note DATE: 10/26/16 TIME: 10:03 Discharge Summary Admission/Discharge Info Admit Date/Time Oct 22, 2016 at 05:53 Discharge Date/Time Oct 25, 2016 at 17:25 Discharge Diagnosis Status post left total knee arthroplasty Patient Condition: Stable Hospital Course On the day of admission, the patient underwent left total knee arthroplasty Intraoperative complications: None Postoperative complications: None The patient was given prophylactic antibiotics and anticoagulants. On the day of surgery and first postoperative day patient was started on gait training and was taught usual restrictions following knee replacement The wound was found to be clean and healing well. There was no sign of infection. Pain cocktail given. Hemovac was not removed on first postoperative day. On the second postoperative day, Hemovac was removed and patient continued with inpatient PT. Dressings were changed. Wound was found to be clean and healing well. No signs of infection. Pain cocktail given. On the day of discharge, the wound was clean and healing well; there was no sign of infection. The dressings were changed. Discharge Temperature: 98.3 Discharge White Blood Cell Count: 11.9 Discharge Hemoglobin: 10.5 The patient was discharged to [facility]. Instructions regarding knee immobilizer were discussed. Patient is to remain in knee immobilizer at rest. Patient can come out of knee immobilizer when he is performing physical therapy and range of motion but after monitored sessions , patient is to go back in knee immobilizer at rest. Tegaderm with pad also provided for patient. Instructions given on how to use to keep wound dry while showering. Patient may discontinue use of Tegaderm with pad after junior have been removed around 10 days postoperatively. The patient will be seen in office at scheduled postoperative evaluation date given on their preoperative exam. Should patient complain of any problems prior to scheduled postoperative evaluation date, they may call into outpatient clinic to determine if they need to be scheduled at sooner appointment to be seen immediately if needed. Discharge medications: As per medication reconciliation form Diet: Same as preadmission diet. This is Guero Nagel PA-C dictating discharge summary for Dr. Eldon Mckinnon. Home Meds Reported Medications Warfarin Sod (Coumadin) 5 Mg Tab, 4 MG PO DAILY, TAB 10/25/16 Ferrous Sulfate (Iron) 325 Mg Capsule.er, 325 MG PO DAILY, CAP 10/22/16 Magnesium Oxide (Magnesium) 400 Mg Tablet, 400 MG PO DAILY, TAB 10/22/16 Olopatadine HCl (Pazeo) 2.5 Ml Drops, 2.5 ML OP TID, BOTTLE 10/22/16 Loratadine (ALLERCLEAR) 10 Mg Tablet, 10 MG PO DAILY, TAB 10/22/16 Bimatoprost* (Lumigan*) 0.01%-2.5 Ml Opht Drops, 1 DROP BOTH EYES HS, EA 10/22/16 Ferrous Sulfate (Iron) 325 Mg Capsule.er, 325 MG PO DAILY, CAP 10/22/16 Magnesium Oxide (Magnesium) 400 Mg Tablet, 400 MG PO, TAB 10/22/16 Potassium Chloride (Klor-Con) 10 Meq Tablet.sa, 10 MEQ PO BID, TAB.SA 10/22/16 Zolpidem Tartrate* (Zolpidem Tartrate*) 5 Mg Tablet, 5 MG PO QHS Y for INSOMNIA , #30 TAB 10/22/16 Carvedilol* (Coreg*) 3.125 Mg Tablet, 3.125 MG PO BID, #60 TAB 10/22/16 Tamsulosin Hcl* (Tamsulosin Hcl*) 0.4 Mg Cap.er.24h, 0.4 MG PO HS, CAP 10/22/16 Omeprazole* (Omeprazole*) 20 Mg Capsule.dr, 20 MG PO DAILY, #30 CAP 10/22/16 Metformin Hcl* (Metformin Hcl* ER) 500 Mg Tab.sr.24h, 500 MG PO DAILY, #30 TAB 10/22/16 Allopurinol* (Allopurinol*) 300 Mg Tablet, 300 MG PO AM 10/06/10 Bumetanide* (Bumetanide*) 1 Mg Tablet, 1 MG PO DAILY, #1 09/23/10 Discontinued Reported Medications Warfarin Sodium* (Coumadin*) 2 Mg Tablet, 2 MG PO AM 10/06/10 Ketoprofen (Ketoprofen) 75 Mg Capsule, 75 MG PO BID 10/06/10 [Metolazone] No Conflict Check, PO MWF, #1 09/23/10 [Potassium] No Conflict Check, PO BID, #1 09/23/10 [Losartan] No Conflict Check, PO DAILY, #1 09/23/10 [Carved] No Conflict Check, PO BID, #1 09/23/10 [Omeprazol] No Conflict Check, PO BID, #1 09/23/10 Follow-up Plan 3 weeks postoperatively. Appointment given at his preoperative examination. Primary Care Provider Not On Staff Doctor Pending Labs Laboratory Tests Test 10/25/16 12:51 Bedside Glucose 122mg/dL (70-220) GUERO SMITH PA-C Oct 26, 2016 10:08
== END 2016-10-25 17:25 | DRG 470 ==
LOC: REC 10-22 05:53 → MS1 10-22 21:15
PROC: 0SRD0J9 Replacement of Left Knee Joint with Synthetic Substitute, Cemented, Open Approach (ICD-10-PCS; principal; 2016-10-22 07:30)
DX: M17.12 Unilateral primary osteoarthritis, left knee (principal); E11.9 Type 2 diabetes mellitus without complications; I48.2 Chronic atrial fibrillation; I10 Essential (primary) hypertension; Z95.2 Presence of prosthetic heart valve; Z79.01 Long term (current) use of anticoagulants; H40.9 Unspecified glaucoma; N40.0 Benign prostatic hyperplasia without lower urinary tract symptoms
CPT/HCPCS: 73560; 80048; 80053; 82962; 83036; 83735; 84100; 85025; 85610; 85730; 86850; 86900; 86901; 86920; 87070; 88304; 88311; 94664; 97110; 97116; 97162; 97166; 97530; 97535; C1776; J0131; J0690; J0735; J1100; J1170; J1200; J1650; J1815; J1885; J2250; J2274; J2405; J2710; J2795; J3010; J3370; J7030; J7120; J7121

== ENCOUNTER → 2016-10-21 | Outpatient (CLI) | payer MEDICARE, OTHER ==
[~2016-10-21] MED LIST changes: +BIMA2.5D BOTH EYES; +CARV3.12 PO; +COU5 PO; +FERR325C PO; +MAGN400T38 PO; +METF500T3 PO; +OLOP2.5D5 OP; +OMEP20CA16 PO; +POTA10TA97 PO; +TAMS0.4C2 PO; +ZOLP5TAB7 PO; +[UNRECOGNIZED DRUG - CODE] PO
--- NOTE | 2016-10-21 08:49 | PREOPHP ---
DATE OF ADMISSION: 10/20/2016 DICTATED BY: Kevin Dunham DATE OF SURGERY: 10/22/2016 SURGERY: Left total knee replacement. SURGEON: Eldon Mckinnon MD REASON FOR ADMISSION: Preop medical consultation for surgical clearance. HISTORY OF PRESENT ILLNESS: The patient is a 71-year-old male with advanced degenerative arthritis, [id number] both knees, who was scheduled to have surgery on his knees a long time ago, but he ended up having a whole bunch of cardiac problems. 1. He had a mitral valve replacement with a mechanical valve 01/12/2011. He has a pacemaker. He has been in chronic atrial fibrillation, on Coumadin, well anticoagulated. He also has problems with the inferior wall ischemia to the RCA but well compensated. He has been followed by Dr. Soria, stock layer, who did a Lexiscan recently that shows some ischemia on the inferior part of the wall. Otherwise, the ejection fraction was 50 percent or higher. He has been on Bumex 1 mg daily, potassium 10 mEq daily and Coreg 3.25 mg once a day[address] Dr. Soria is the stock layer who has been seeing the patient. He is going to send a copy of the pharmacological myocardial perfusion scan, EKG that was done. Also he left specific instructions on what to do with the Coumadin, which is stopping the Coumadin 5 days before surgery. INR was done 2 days before the surgery, which is being done today and one tomorrow. He will be started on Lovenox 1 mg/kg via IV if the INR is less than 2. He will be started on Lovenox and Coumadin after surgery. As far as the cardiac evaluation, I am leaving the instructions to be given by Dr. Soria. He thus will call to your facility at [facility]. 2. Sleep apnea. He has been using CPAP for about 4 years. He quit smoking 20 years ago. No chronic cough, phlegm, mucus, congestion. Last chest x-ray was just done. Results are pending. He is current with his pneumonia and his flu vaccine. 3. Diabetes, type 2, on metformin 500 mg b.i.d. Glycohemoglobin has been between 6 and 6.2. He has no significant problems with neuropathy, retinopathy, or peripheral vascular disease. He had arterial flow studies of both lower extremities which are negative. 4. Severe osteoarthritis, chronic pain in both legs. Very difficult to walk. He had several injections to both knees without significant improvement. 5. Morbid obesity. He is 5 feet 2 inches. He weighs 225 pounds. His BMI is about 41. He has been totally unsuccessful in losing weight, mostly because of his bilateral knee pain. 6. GERD, on omeprazole 20 mg daily. He usually takes it 4-5 times a week. He has occasional constipation. He uses lactulose 3-4 times a month. 7. BPH with urgency, frequency and dribbling. He has seen the urologist. Stable as long as he takes Flomax 0.4 mg daily. Prostatic exam was unremarkable. PSA was normal. He also had a cystoscopy that was normal. 8. History of gout, on allopurinol 300 mg daily. Several podagra episodes in the past. His uric acid remains below 6. 9. Glaucoma. Lumigan both eyes nightly. He had cataract removal in the right eye. He sees a Dr. Disla. ALLERGIES: The patient is allergic to no medications. SOCIAL HISTORY: He quit smoking more than 27 years ago. No alcohol. He drinks 1-2 cups a day. Not taking any drugs. PAST SURGICAL HISTORY: Sinus drainage procedure done in 2007, right eye cataract in 2005. FAMILY HISTORY: Noncontributory. The patient is , in a stable relationship. REVIEW OF SYSTEMS: Otherwise noncontributory. PHYSICAL EXAMINATION: GENERAL: Well developed, obese male, in no acute distress. VITAL SIGNS: Blood pressure 120/64, pulse 62 irregular. HEENT: Head is normocephalic, atraumatic. Eyes: Conjunctivae are clear. Right eye cataract surgery, cataract in left eye. Ears, nose and throat exam is unremarkable. Mouth: Poor dentition. NECK: Full range of motion. No thyromegaly. No adenopathy. The carotid pulse is slightly decreased on the left side. HEART: Irregularly irregular rhythm with a rate about 70. He has a loud mitral valve click. Pulses are slightly decreased in both lower extremities. CHEST: Anterior thoracotomy scar well healed. LUNGS: Clear to percussion and auscultation. BREASTS: No masses. BACK: No spine or CVA tenderness. ABDOMEN: Obese, nontender, nondistended. He has a ventral hernia and umbilical hernia. RECTAL EXAM: Not done. It was done by the urologist recently. EXTREMITIES: No clubbing, cyanosis, or edema. NEUROLOGICAL EXAM: Grossly physiological. IMPRESSION AND PLAN: His medical problems have been well delineated. This consultation is being sent from the stock layer and clearing him for surgery. He is a moderate cardiac risk. I agree with that diagnosis. Records have been sent. The EKG is read by the stock layer. Blood sugar was 87. Renal function and kidney functions were normal. The CBC was normal as well, as well as the urine. Dictated By: Eldon Mckinnon MD /artur/jessee /Document#: [id number]
== END | disposition home or self-care (01) ==
LOC: HKI 13:30
DX: Z01.818 Encounter for other preprocedural examination (principal); M17.0 Bilateral primary osteoarthritis of knee; Z95.0 Presence of cardiac pacemaker
CPT/HCPCS: G0463

== ENCOUNTER → 2016-12-03 | Outpatient (CLI) | payer MEDICARE, OTHER ==
[~2016-12-03] MED LIST changes: -CARVED PO; -KETO75CA PO; -LOSARTAN PO; -METOLAZONE PO; -OMEPRAZOL PO; -POTASSIUM PO; -WARF2TAB PO
--- NOTE | 2016-12-03 14:29 | RADRPT ---
PROCEDURE: X-RAY LEFT KNEE CLINICAL INDICATION: Total knee replacement. Status post surgery. Follow-up. Pain. TECHNIQUE: Three views of the left knee are available for review. COMPARISON: 10/22/2016. FINDINGS: Patient is status post total knee replacement. The knee replacement is in good position and alignme nt without evidence of migration, loosening, infection, or fracture. No bone destructive or erosive changes are seen. No acute fracture is identified. There is a no evidence for effusion. IMPRESSION: 1. Appropriate postoperative appearance of left knee replacement. 2. No acute change and no evidence for fracture. RPTAT: XX .Praveen Valero MD, MD Date Time Electronically viewed and signed by .Praveen Valero MD, on 12/03/2016 14:29 .T/
--- NOTE | 2016-12-16 06:00 | HKNOTE ---
DATE OF SERVICE: 12/03/2016 HISTORY OF PRESENT ILLNESS: The patient comes in for a postoperative visit. He underwent a left total knee replacement on 10/22/2016. He comes in for a checkup. He is getting home physical therapy. He is satisfied with the result of the surgery so far. PHYSICAL EXAMINATION: VITAL SIGNS: Blood pressure 130/60, temperature 98.1. EXTREMITIES: Examination of the left knee, the wound looks perfect. No sign of infection, inflammation, or discharge. Range of motion of the knee is 5 degrees to 120 degrees active and passive. IMAGING: Plain x-rays of the knee obtained today at the [facility] were reviewed. These show excellent placement of all components and excellent fixation of all components to the bone. There is some questionable possibility of lift off of the posterior tibial tray, but with good cement under the tray. DISCUSSION: Note, that this patient refused to see my physician kindergarten assistant, Johnson (who usually sees all the postoperative patients). He also refused to speak with me in Hungarian and insisted that I have a gold reclaimer. He attended that he was totally unable to understand a single word of Hungarian until after the entire visit when I saw him at the front end driver and he was speaking perfect Hungarian. Make of this what you will. The patient was given a refill on his prescription for [place] and he will be seen again in a months time for evaluation. Dictated By: Eldon Mckinnon MD /artur/devin /Document#: [id number]
== END | disposition home or self-care (01) ==
LOC: HKI 09:21
DX: Z09 Encounter for follow-up examination after completed treatment for conditions other than malignant neoplasm (principal); Z96.652 Presence of left artificial knee joint

== ENCOUNTER → 2016-12-31 | Outpatient (CLI) | payer MEDICARE, OTHER ==
--- NOTE | 2016-12-31 15:19 | HKNOTE ---
DATE OF SERVICE: 12/31/2016 The patient comes in for a 9-week checkup on his left total knee replacement. He also complains of pain in his right knee. Note that today, both he and his speaks perfect Norwegian and we did not need a Swedish translato r. Note also that he once again refused to have my assistant attorney general, Johnson (-Armenian), see him at all. PHYSICAL EXAMINATION: LEFT KNEE: The left knee range of motion is as follows: Extension lacks 5 degrees flexion to 100 d egrees. External sign of infection or inflammation. It was completely healed. RIGHT KNEE: Examination of the right knee: Range of motion is 10 degrees to 100 degrees, 6+ crepit us in the knee, none in the patella, 2+ effusion. IMAGING: Plain x-rays of the left knee obtained in the bilateral hip and knee show all components t o be well attached to the bone. There is the issue of "possible lift off" on the tibial component, but I doubt that this is of any significance. MANAGEMENT: 1. At patient's request, under sterile conditions, he was given an injection of 2 mL of Kenalog and 6 mL of 2% lidocaine into the right knee. 2. He was given a prescription for outpatient physical therapy where I believe he will get better t reatment rather than having therapy at home. He will be seen again in 3 months' time for reevaluati on that he is anxious to have his other knee operated on. Dictated By: ARIANA AJCOBSEN/JEFFY Conf#: [id number] DID#: [id number]
== END | disposition home or self-care (01) ==
LOC: HKI 11:03
DX: M25.561 Pain in right knee (principal); Z09 Encounter for follow-up examination after completed treatment for conditions other than malignant neoplasm; Z96.652 Presence of left artificial knee joint

== ENCOUNTER → 2017-06-21 | Outpatient (CLI) | END | disposition home or self-care (01) ==

== ENCOUNTER → 2017-08-30 | Outpatient (CLI) | END | disposition home or self-care (01) ==

== ENCOUNTER → 2017-09-14 | Outpatient (CLI) | END | disposition home or self-care (01) ==

== ENCOUNTER → 2017-09-27 | Outpatient (CLI) | END | disposition home or self-care (01) ==

== ENCOUNTER → 2017-11-02 | Outpatient (CLI) | END | disposition home or self-care (01) ==

== ENCOUNTER → 2017-11-22 | Outpatient (CLI) | END | disposition home or self-care (01) ==

== ENCOUNTER → 2018-01-24 | Outpatient (CLI) | END | disposition home or self-care (01) ==

== ENCOUNTER 2018-11-04 14:24 | Emergency (ER) | payer MEDICARE, OTHER ==
[~2018-11-04] VITALS: Ht 162.6 cm; Wt 111.4 kg
[~2018-11-04 14:24] MED LIST changes: +BUME1TAB PO; -BUME1TAB18 PO; -CARV3.12 PO; +CARV3.1260 PO; +CETI10TA19 PO; -COU5 PO; +ENOX80DI12 SC; -FERR325C PO; +LIDO700A45 TP; +MAGN400T27 PO; -MAGN400T38 PO; +METF500T24 PO; -METF500T3 PO; +MULT-718 PO; -OLOP2.5D5 OP; +POTA10TA37 PO; -POTA10TA97 PO; +TAMS-14 PO; -TAMS0.4C2 PO; +WARF4TAB PO; +WARF5TAB PO; -ZOLP5TAB7 PO; -[UNRECOGNIZED DRUG - CODE] PO
[2018-11-04 14:32] VITALS: Ht 162.6 cm; Wt 111.4 kg
[2018-11-04] MEDS ORDERED: SOD CHLORIDE 0.9% 1,000 ML IV STA (15:28)
[2018-11-04] MEDS ORDERED: ONDANSETRON 4 MG INJ IV STA (15:28)
[2018-11-04] MEDS ORDERED: KETOROLAC 15 MG INJ IV STA (15:28)
[2018-11-04 17:00] VITALS: BP 104/62; PULSE 63; RESP 17
== END 2018-11-04 18:27 | disposition home or self-care (01) ==
LOC: E/R 14:24
DX: S30.1XXA Contusion of abdominal wall, initial encounter (principal); E11.9 Type 2 diabetes mellitus without complications; I50.9 Heart failure, unspecified; E66.9 Obesity, unspecified; X58.XXXA Exposure to other specified factors, initial encounter; Y92.9 Unspecified place or not applicable; Z68.41 Body mass index [BMI] 40.0-44.9, adult; Z79.01 Long term (current) use of anticoagulants; Z79.84 Long term (current) use of oral hypoglycemic drugs; Z95.0 Presence of cardiac pacemaker; Z87.891 Personal history of nicotine dependence
CPT/HCPCS: 74176; 80053; 83690; 85025; 85610; 85730; 96374; 96375; 99285; J1885; J2405; J7030